=== PATIENT | female | born 1995 | race African-American/Black ===

== ENCOUNTER → 2016-12-30 | Outpatient (CLI) | payer MEDICAID ==
[2016-12-31 09:16] LABS: ABSOLUTE BASOPHILS # (AUTO) 0.1 10^3/uL (0.0-0.2); ABSOLUTE LYMPHOCYTES (AUTO) 1.9 10^3/uL (0.5-4.7); ABSOLUTE MONOCYTES (AUTO) 0.7 10^3/uL (0.1-1.4); ABSOLUTE NEUT (AUTO) 7.2 10^3/uL (1.7-8.2); BASOPHILS % (AUTO) 0.8 % (0-2); EOSINOPHILS % (AUTO) 0.1 % (0-6); HEMATOCRIT 27.3 % (36.0-47.0); HEMOGLOBIN 8.7 g/dL (12.0-15.5); HGB HCT DIFFERENCE -1.2; LYMPHOCYTES % (AUTO) 19.4 % (13-45); MEAN CORPUSCULAR HEMOGLOBIN 24.6 pg (27.0-33.4); MEAN CORPUSCULAR HGB CONC 31.7 g/dL (32.0-36.0); MEAN CORPUSCULAR VOLUME 78 fl (80-97); RED BLOOD COUNT 3.52 10^6/uL (3.72-5.28); RED CELL DISTRIBUTION WIDTH 15.3 % (11.5-14.0); SEGMENTED NEUTROPHILS % (AUTO) 72.7 % (42-78); WHITE BLOOD COUNT 9.9 10^3/uL (4.0-10.5)
[2016-12-31 13:40] LABS: APPEARANCE,URINE CLOUDY; BILIRUBIN,URINE NEGATIVE (NEGATIVE); GLUCOSE, URINE NEGATIVE (NEGATIVE); KETONES,URINE NEGATIVE (NEGATIVE); LEUKOCYTE ESTERASE,URINE SMALL (NEGATIVE); NITRITE,URINE NEGATIVE (NEGATIVE); PROTEIN,URINE NEGATIVE (NEGATIVE); URINE SPECIFIC GRAVITY 1.011; UROBILINOGEN,URINE NEGATIVE mg/dL (<2.0)
[2016-12-31 17:47] LABS: BLOOD UREA NITROGEN 8 mg/dL (7-20); CALCIUM 9.3 mg/dL (8.4-10.2); CREATININE RESULT 0.64 mg/dL (0.52-1.25); GLUCOSE 85 mg/dL (75-110)
[2016-12-31 17:48] LABS: ANION GAP 9 (5-19); CARBON DIOXIDE 22 mmol/L (22-30); CHLORIDE 108 mmol/L (98-107); SODIUM 139.1 mmol/L (137-145); URIC ACID 5.2 mg/dL (2.5-6.2)
[2016-12-31 17:49] LABS: LDH 533 U/L (313-618)
[2016-12-31 17:50] LABS: URINE PHENCYCLIDINE SCREEN NEGATIVE
[2016-12-31 17:51] LABS: URINE BARBITURATES SCREEN NEGATIVE; URINE METHADONE SCREEN NEGATIVE; URINE OPIATES LOW NEGATIVE
== END ==
LOC: LC 14:13
PROVIDERS: ATTEND Specialist
PROC: 4A1HXCZ Monitoring of Products of Conception, Cardiac Rate, External Approach (ICD-10-PCS; principal; 2016-12-30)
DX: O48.0 Post-term pregnancy (principal); Z3A.40 40 weeks gestation of pregnancy
CPT/HCPCS: 36415; 59025; 80048; 80307; 81001; 83615; 84550; 85025

== ENCOUNTER 2017-01-01 07:26 | Inpatient (IN) | payer MEDICAID ==
[2017-01-01] MEDS ORDERED: RINGERS SOLUTION,LACTATED 300 ML IV ONE (07:55)
[2017-01-01] MEDS ORDERED: MAGNESIUM SULFATE 100 ML IV ONE (08:01)
[2017-01-01] MEDS ORDERED: MAGNESIUM SULFATE 4 GM/100 ML RTUPB IV ONE (08:44)
[2017-01-01] MEDS: RINGERS SOLUTION,LACTATED 1,000 ML IV PRN (08:55)
[2017-01-01] MEDS: MAGNESIUM SULFATE 500 ML IV PRN (09:15)
[2017-01-01 09:18] LABS: ABSOLUTE LYMPHOCYTES (AUTO) 2.1 10^3/uL (0.5-4.7); ABSOLUTE MONOCYTES (AUTO) 0.6 10^3/uL (0.1-1.4); ABSOLUTE NEUT (AUTO) 5.4 10^3/uL (1.7-8.2); BASOPHILS % (AUTO) 0.5 % (0-2); EOSINOPHILS % (AUTO) 0.2 % (0-6); HEMATOCRIT 28.7 % (36.0-47.0); HEMOGLOBIN 9.1 g/dL (12.0-15.5); HGB HCT DIFFERENCE -1.4; LYMPHOCYTES % (AUTO) 25.4 % (13-45); MEAN CORPUSCULAR HEMOGLOBIN 24.6 pg (27.0-33.4); MEAN CORPUSCULAR HGB CONC 31.7 g/dL (32.0-36.0); MEAN CORPUSCULAR VOLUME 78 fl (80-97); MONOCYTES % (AUTO) 7.8 % (3-13); RED BLOOD COUNT 3.71 10^6/uL (3.72-5.28); RED CELL DISTRIBUTION WIDTH 15.5 % (11.5-14.0); SEGMENTED NEUTROPHILS % (AUTO) 66.1 % (42-78); WHITE BLOOD COUNT 8.1 10^3/uL (4.0-10.5)
[2017-01-01 09:31] LABS: ALANINE AMINOTRANSFERASE 20 U/L (9-52); ALBUMIN 3.5 g/dL (3.5-5.0); ALKALINE PHOSPHATASE 166 U/L (38-126); ANION GAP 13 (5-19); ASPARTATE AMINO TRANSFERASE 20 U/L (14-36); BILIRUBIN,DIRECT 0.2 mg/dL (0.0-0.4); BILIRUBIN,TOTAL 0.3 mg/dL (0.2-1.3); BLOOD UREA NITROGEN 5 mg/dL (7-20); CALCIUM 9.4 mg/dL (8.4-10.2); CARBON DIOXIDE 21 mmol/L (22-30); CHLORIDE 107 mmol/L (98-107); GLUCOSE 71 mg/dL (75-110); LDH 483 U/L (313-618); SODIUM 140.5 mmol/L (137-145); TOTAL PROTEIN 6.8 g/dL (6.3-8.2)
[2017-01-01] MEDS ORDERED: HYDRALAZINE HCL INJ/PF 20 MG/1 ML SDV IV ONE (09:40)
[2017-01-01] MEDS ORDERED: HYDRALAZINE HCL INJ/PF 20 MG/1 ML SDV ONE (09:40)
[2017-01-01 09:51] LABS: APPEARANCE,URINE SLIGHTLY-CLOUDY; BILIRUBIN,URINE NEGATIVE (NEGATIVE); GLUCOSE, URINE NEGATIVE (NEGATIVE); KETONES,URINE TRACE mg/dL (NEGATIVE); LEUKOCYTE ESTERASE,URINE NEGATIVE (NEGATIVE); NITRITE,URINE NEGATIVE (NEGATIVE); PROTEIN,URINE NEGATIVE (NEGATIVE); URINE SPECIFIC GRAVITY 1.012; UROBILINOGEN,URINE NEGATIVE mg/dL (<2.0)
[2017-01-01 10:19] LABS: URINE BARBITURATES SCREEN NEGATIVE; URINE METHADONE SCREEN NEGATIVE; URINE OPIATES LOW NEGATIVE; URINE PHENCYCLIDINE SCREEN NEGATIVE
[2017-01-01 11:03] LABS: AMNISURE (ROM) NEGATIVE (NEGATIVE)
[2017-01-01] MEDS ORDERED: OXYTOCIN/NORMAL SALINE 20 UNIT/1,000 ML RTUINJ ONE (11:27)
[2017-01-01] MEDS: OXYTOCIN/NORMAL SALINE 1,000 ML IV PRN ×2 (11:36→22:40)
[2017-01-01] MEDS ORDERED: PENICILLIN G-K 5 MILLION UNIT VIAL ONE ×3 (12:58→20:40)
[2017-01-01] MEDS ORDERED: ONDANSETRON HCL INJ/PF 4 MG/2 ML SDV ONE (13:13)
[2017-01-01] MEDS ORDERED: NALBUPHINE HCL INJ 10 MG/1 ML AMPULE ONE (14:37)
[2017-01-01] MEDS ORDERED: FENTANYL/BUPIVACAINE/NS/PF 200 MCG/100 ML RTUINJ EPI ONE (15:47)
[2017-01-01] MEDS ORDERED: EPHEDRINE SULFATE INJ 50 MG/1 ML AMPULE ONE (15:47)
[2017-01-01] MEDS ORDERED: LIDOCAINE 1% INJ-PF (10 MG/ML) 30 ML SDV ONE (15:47)
[2017-01-01] MEDS ORDERED: BUPIVACAINE HCL 0.25 % INJ/PF (2.5 MG/1 ML) 30 ML VIAL ONE (15:47)
[2017-01-01] MEDS ORDERED: MISOPROSTOL 0.2 MG TABLET ONE (15:47)
[2017-01-01] MEDS ORDERED: PSEUDOEPHEDRINE HCL 30 MG TABLET PO PRN (21:45)
[2017-01-01] MEDS ORDERED: MAGNESIUM HYDROXIDE SUSP 30 ML UDCUP PO PRN (21:45)
[2017-01-01] MEDS ORDERED: GLYCERIN/WITCH HAZEL LEAF 1 EACH MED..PAD TP PRN (21:45)
[2017-01-01] MEDS ORDERED: BENZOCAINE/MENTHOL AEROSOL SPRAY 56 ML TOP PRN (21:45)
[2017-01-01] MEDS ORDERED: DIBUCAINE 1% OINTMENT 28 GM TP PRN (21:45)
[2017-01-01] MEDS ORDERED: DIPH/PERTUSS(ACELL)/TETANUS VAC/PF 0.5 ML SYR (>=10YO) IM PRN (21:45)
[2017-01-01] MEDS ORDERED: MEASLES,MUMPS&RUBELLA VACC/PF 0.5 ML VIAL SUBCUT PRN (21:45)
[2017-01-01] MEDS ORDERED: PROMETHAZINE HCL INJ 25 MG/1 ML VIAL IV PRN (21:45)
[2017-01-01] MEDS ORDERED: DIPHENHYDRAMINE HCL 25 MG CAPSULE PO PRN (21:45)
[2017-01-01] MEDS ORDERED: NA PHOS,M-B/NA PHOS,DI-BA (ADULT) 133 ML ENEMA PR PRN (21:45)
[2017-01-01] MEDS ORDERED: ACETAMINOPHEN WITH CODEINE #3 TABLET PO PRN ×2 (21:45)
[2017-01-01] MEDS ORDERED: ACETAMINOPHEN 650 MG SUPP.RECT PR PRN (21:45)
[2017-01-01] MEDS ORDERED: ZOLPIDEM TARTRATE 5 MG TABLET PO PRN (21:45)
[2017-01-01] MEDS ORDERED: PROMETHAZINE HCL 25 MG SUPP.RECT PR PRN (21:45)
[2017-01-01] MEDS ORDERED: OXYTOCIN/NORMAL SALINE 1,000 ML IV PRN (21:45)
[2017-01-01] MEDS ORDERED: PROMETHAZINE HCL 25 MG TABLET PO PRN (21:45)
[2017-01-01] MEDS: PENICILLIN G-K 5 MILLION UNIT VIAL IV SCH ×2 (22:39→22:40)
[2017-01-01] MEDS: IBUPROFEN 800 MG TABLET PO SCH (22:47)
[2017-01-01] MEDS: FAMOTIDINE 20 MG TABLET PO SCH (22:48)
[2017-01-01] MEDS ORDERED: FAMOTIDINE 20 MG TABLET ONE (22:49)
[2017-01-01] MEDS ORDERED: IBUPROFEN 800 MG TABLET ONE (22:49)
--- NOTE | 2017-01-01 23:35 | Delivery Summary ---
Del Sum A-C Datetime Report Generated by CPN: 01/01/2017 23:35 DELIVERY PERSONNEL DELIVERY PERSONNEL: [phone] Delivery Doctor:: Delores Craig MD Labor and Delivery Nurse:: Gricelda Rosales RNexecutive wellness programs director Nurse:: Taina Dunn RN Nursery Nurse:: Kianna Mae RN Nursery Nurse:: Pattie Tucker RN Rn Dermatology/PATIENT PLACEMENT COORDINATOR: Keshav Ertel, PATIENT PLACEMENT COORDINATOR MATERNAL INFORMATION Delivery Anesthesia: Epidural Medications After Delivery: Pitocin Bolus-Please Comment Meds After Delivery Comment: Pitocin 20 unita/1000 ml NS Estimated Blood Loss (ml): 250 Maternal Complications: None LABOR SUMMARY EDC: 12/28/2016 00:00 No. Babies in Womb: 1 Attempted: No Labor Anesthesia: Epidural LABOR INFORMATION Reason for Induction: Pre-Eclampsia Onset of Labor: 01/01/2017 13:19 Complete Dilatation: 01/01/2017 20:16 Oxytocin: Induction Group B Beta Strep: positive Antibiotics # of Doses: 4 Antibiotics Time of Last Dose: 2042 Name of Antibiotic Given: PCN Steroids Given: None Reason Steroids Not Administered: Not Applicable MEMBRANES Membranes Rupture Method: Spontaneous Rupture of Membranes: 01/01/2017 15:09 Length of Rupture (hr): 6.18 Amniotic Fluid Color: Moderate Meconium Amniotic Fluid Amount: Large Amniotic Fluid Odor: Normal STAGES OF LABOR Stage 1 hr: 6 Stage 1 min: 57 Stage 2 hr: 1 Stage 2 min: 4 Stage 3 hr: 0 Stage 3 min: 5 Total Time in Labor hr: 8 Total Time in Labor min: 6 VAGINAL DELIVERY Episiotomy: None Laceration Extension: Second Degree Laceration Type: Perineal Laceration Repair: Yes Laceration Repair Note: repair of a very small 3-0 vicryl in usual fashion Sponge Count Correct: N/A Sharps Count Correct: N/A CSECTION DELIVERY Primary Indication: N/A Secondary Indication: N/A CSection Incidence: N/A Labor: N/A Elective: N/A CSection Incision: N/A BABY A INFORMATION Delivery Date/Time: 01/01/2017 21:20 Method of Delivery: Vaginal Born in Route : No : N/A Forceps: N/A Vacuum Extraction: N/A Shoulder Dystocia : No PRESENTATION/POSITION BABY A Presentation: Cephalic Cephalic Presentation: Vertex Vertex Position: Left Occipital Anterior Breech Presentation: N/A PLACENTA INFORMATION BABY A Placenta Delivery Time : 01/01/2017 21:25 Placenta Method of Delivery: Spontaneous Placenta Status: Delivered SCORES BABY A Heart Rate 1 min: >100 bpm Resp Effort 1 min: Good Cry Reflex Irritability 1 min: Cough or Sneeze or Pulls Away Muscle Tone 1 min: Some Flexion of Extremities Color 1 min: Blue/Pale Resuscitation Effort 1 min: Tactile Stimulation; Oxygen SCORE 1 MIN: 7 Heart Rate 5 min: >100 bpm Resp Effort 5 min: Good Cry Reflex Irritability 5 min: Cough or Sneeze or Pulls Away Muscle Tone 5 min: Active Motion Color 5 min: Blue/Pale Resuscitation Effort 5 min: Tactile Stimulation; Oxygen SCORE 5 MIN: 8 INFANT INFORMATION BABY A Gestational Age at Delivery: 40.4 Gestational Status: Full Term- 39- 40.6 Weeks Infant Outcome : Liveborn Condition : Stable Sex: Male IDENTIFICATION BABY A Infant Verification Date/Time: 01/01/2017 21:30 ID Band Number: [id number] Mother's Name Verified: Yes Infant RN Verifying Infant: K. Akshat, RN/B. Dunn, RN WEIGHT/LENGTH BABY A Infant Birthweight (gm): 2845 Weight (lb): 6 Weight (oz): 4 Infant Length (in): 18.75 Length (cm): 47.63 CORD INFORMATION BABY A No. Cord Vessels: 3 Nuchal Cord : N/A Cord Blood Taken: Yes-For Storage (Mom's Blood type +) Suction: Mouth; Nose ASSESSMENT BABY A Infant Complications: None Physical Findings at Delivery: Within Normal Limits Skin to Skin: Yes Skin to Skin Time (min): 1 Accounting Recruiter/ALS Called : No Infant Care By: Benny Mae RN/Audra Tucker RN Transferred To: [facility] SIGNATURES Signature: with User ID: [email or web address] : I personally evaluated and examined the patient in conjunction with the MLP and agree with the assessment, treatment plan and disposition.
[2017-01-02] MEDS ORDERED: PENICILLIN G POTASSIUM 2,500,000 UNIT in DEXTROSE 5%-WATER 50 ML IV SCH (00:38)
[2017-01-02] MEDS: RINGERS SOLUTION,LACTATED 1,000 ML IV PRN (02:13)
[2017-01-02] MEDS: MAGNESIUM SULFATE 500 ML IV PRN (05:02)
[2017-01-02 07:57] LABS: HEMATOCRIT 27.2 % (36.0-47.0); HEMOGLOBIN 8.7 g/dL (12.0-15.5); HGB HCT DIFFERENCE -1.1; MEAN CORPUSCULAR HEMOGLOBIN 24.7 pg (27.0-33.4); MEAN CORPUSCULAR HGB CONC 32.2 g/dL (32.0-36.0); MEAN CORPUSCULAR VOLUME 77 fl (80-97); RED BLOOD COUNT 3.54 10^6/uL (3.72-5.28); RED CELL DISTRIBUTION WIDTH 15.6 % (11.5-14.0)
[2017-01-02 08:10] LABS: WHITE BLOOD COUNT 18.9 10^3/uL (4.0-10.5)
[2017-01-02] MEDS: IBUPROFEN 800 MG TABLET PO SCH ×3 (08:39→22:40)
[2017-01-02] MEDS ORDERED: ACETAMINOPHEN WITH CODEINE #3 TABLET ONE (08:55)
[2017-01-02] MEDS ORDERED: PRAMOXINE HCL/MINERAL OIL/ZNOX OINT 28.3 GM PR PRN (09:04)
[2017-01-02] MEDS ORDERED: BENZOCAINE/MENTHOL AEROSOL SPRAY 56 ML ONE (09:04)
--- NOTE | 2017-01-02 09:58 | Admission Physical ---
Datetime Report Generated by CPN: 01/02/2017 09:58 CURRENT ADMISSION Chief Complaint: Uterine Contractions Admit Impression- Other: Elevated b/p Admit Plan: Admit to Unit; Initiate Labor Protocol ALLERGIES Medication Allergies: No Medication Allergies: No Known Allergies (07/31/2016) Latex: No Latex Allergies Food Allergies: none Environmental Allergies: none OBSTETRICAL HISTORY EDC: 12/28/2016 00:00 : 1 Para: 0 Gestational Diabetes: No Rh Sensitization: No Incompetent Cervix: No VICTOR M: No Infertility: No ART Treatment: No Uterine Anomaly: No IUGR: No Hx Previous C/S: No Macrosomia: No Hx Loss/Stillborn: No PIH: Yes Hx : No Placenta Previa/Abruption: No Depression/PP Depression: No PTL/PROM: No Post Hemorrhage: No Current Procedures: Ultrasound; NST Obstetrical History Comments: G1: current SEE RECORDS Alcohol: No Marijuana : No Cocaine: No Other Illicit Drugs: No Cigarettes: Never Smoker. 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 Surgery: No Heart Disease: No Hosp/Surgery: No Autoimmune Disorder: No Anesthetic Complications: No Kidney Disease: No Abnormal Pap Smear: No Neuro/Epilepsy: No Psychiatric Disorders: No Other Medical Diseases: No Hepatitis/Liver Disease: No Significant Family History: No Varicosities/Phlebitis: No Trauma/Violence : No Thyroid Dysfunction: No INFECTIOUS HISTORY Gonorrhea: No Genital Herpes: No Chlamydia: No Tuberculosis: No Syphilis: No Hepatitis: No HIV/AIDS Exposure: No Rash or Viral Illness: No HPV: No PHYSICAL EXAM General: Normal HEENT: Normal Neurologic: Normal Thyroid: Deferred Heart: Normal Lungs: Normal Breast: Deferred Back: Normal Abdomen: Normal Genitourinary Exam: Deferred Extremities: Normal DTRs: Normal Pelvic Type: Not Done Physical Exam Comments: Gravid uterus Vital Signs: Reviewed Details Vital Signs: Elevated b/p VAGINAL EXAM Dilatation: 3 Effacement: 90 Station: -1 FETUS A EGA: 40.4 Monitoring: External US FHR- Baseline: 120 Variability: Moderate 6-25bpm Accelerations: 15X15 Decelerations: None Admit Comment: G1 Admitted for elevated b/p PIH in normal range records available from [facility] Dept Admitted and receiving Magnesium Sulfate Pitocin infusing for IOL PLANS FOR LABOR AND DELIVERY Labor and Delivery: None Pain Management: Epidural Feeding Preference: Breast Benefit of Breast Feed Discussed: Yes Circumcision: Yes INFORMED CONSENT Assignment: Delores Craig MD Signature: with User ID: José Miguel : with User ID: José Miguel : I personally evaluated and examined the patient in conjunction with the MLP and agree with the assessment, treatment plan and disposition.
[2017-01-02] MEDS ORDERED: ONDANSETRON HCL INJ/PF 4 MG/2 ML SDV ONE (10:00)
[2017-01-02] MEDS: SENNOSIDES/DOCUSATE 8.6-50 MG 1 EACH TABLET PO SCH (10:43)
[2017-01-02] MEDS: PRENATAL VITAMIN W-O CA NO5/FE FUMARATE/FA CAPSULE PO SCH (10:43)
[2017-01-02] MEDS: FAMOTIDINE 20 MG TABLET PO SCH ×2 (10:43→22:40)
[2017-01-02] MEDS: DOCUSATE SODIUM 100 MG CAPSULE PO SCH ×2 (10:43→17:50)
[2017-01-02] MEDS: FERROUS SULFATE 325 MG TABLET PO SCH ×2 (10:43→17:50)
[2017-01-02] MEDS ORDERED: ONDANSETRON HCL INJ/PF 4 MG/2 ML SDV IV ONE (10:45)
[2017-01-03] MEDS: IBUPROFEN 800 MG TABLET PO SCH (06:23)
[2017-01-03 09:15] VITALS: BP 126/66
[2017-01-03] MEDS: FERROUS SULFATE 325 MG TABLET PO SCH (09:19)
[2017-01-03] MEDS: FAMOTIDINE 20 MG TABLET PO SCH (09:19)
[2017-01-03] MEDS: DOCUSATE SODIUM 100 MG CAPSULE PO SCH (09:19)
[2017-01-03] MEDS: SENNOSIDES/DOCUSATE 8.6-50 MG 1 EACH TABLET PO SCH (09:20)
[2017-01-03] MEDS: PRENATAL VITAMIN W-O CA NO5/FE FUMARATE/FA CAPSULE PO SCH (09:47)
--- NOTE | 2017-01-03 10:52 | PDOC PROGRESS REPORT ---
Subjective-OB Subjective: Post Delivery Day: 21 year old. Denies any needs at this time. Ready to go home. Denies any KESSLER or visual changes. Physical Exam (OB) Vital Signs: Temp Pulse Resp BP Pulse Ox 98.3 F 62 17 125/78 100 01/03/17 08:58 01/03/17 08:58 01/03/17 08:58 01/03/17 08:58 01/03/17 08:58 Intake & Output 01/02/17 01/03/17 01/04/17 06:59 06:59 06:59 Weight 74.95 kg - PIH/Pre-Eclampsia DTR's: 2 + Clonus: Negative Headache: Absent Epigastric Pain: No Visual Changes: No - Lochia Lochia Amount: Scant < 10 ml Lochia Color: Rubra/Red - Abdomen Description: Tender, Soft Hernia Present: No Bowel Sounds: Normoactive Flatus Presence: Present Stool: No Fundal Description: Firm, Midline Fundal Height: u/u - u/2 Objective-Diagnostic Laboratory: 01/02/17 07:25 01/01/17 08:31
--- NOTE | 2017-01-03 11:00 | PDOC DISCHARGE SUMMARY ---
Final Diagnosis Discharge Date: 01/03/17 - Final Diagnosis (1) Anemia affecting Is this a current diagnosis for this admission?: Yes (2) Delivery normal Is this a current diagnosis for this admission?: Yes (3) Pre-eclampsia affecting childbirth Is this a current diagnosis for this admission?: Yes (4) Is this a current diagnosis for this admission?: Yes Discharge Data - Discharge Medication Home Medications: Vit/Iron Fumarate/FA [ Tablet] 1 each PO DAILY 06/15/16 Docusate Sodium [Colace 100 mg Capsule] 100 mg PO BID #30 capsule 01/03/17 Ferrous Sulfate [Feosol 325 mg Tablet] 325 mg PO BID #60 tablet 01/03/17 Gestational Age: 40.4 wks Reason(s) for Admission: Induction of Labor Procedures: Ultrasound Intrapartum Procedure(s): Spontaneous Vaginal Delivery Complication(s): Laceration-Perineal Laceration-Degree: 2nd - Data Baby 1 Male at 1 minute: 7 at 5 minutes: 8 Weight: 2.835 kg Home with Mother: Yes Complications: No - Diagnosis Test Laboratory: Temp Pulse Resp BP Pulse Ox 98.3 F 62 17 125/78 100 01/03/17 08:58 01/03/17 08:58 01/03/17 08:58 01/03/17 08:58 01/03/17 08:58 01/01/17 01/01/17 01/02/17 08:31 09:12 07:25 RBC 3.71 L 3.54 L Hgb 9.1 L 8.7 L Hct 28.7 L 27.2 L Urine Opiates Screen NEGATIVE - Discharge information/Instructions Discharge Activity: Activity As Tolerated, Balance Activity w/Rest, Pelvic Rest , Slowly Increase Activity, No tub bath Discharge Diet: Regular Disposition: HOME, SELF-CARE Follow up with: [facility] in: 1, Weeks
[2017-01-03 11:19] LABS: HEMATOCRIT 26.6 % (36.0-47.0); HEMOGLOBIN 8.5 g/dL (12.0-15.5); HGB HCT DIFFERENCE -1.1; MEAN CORPUSCULAR HEMOGLOBIN 24.6 pg (27.0-33.4); MEAN CORPUSCULAR HGB CONC 31.8 g/dL (32.0-36.0); MEAN CORPUSCULAR VOLUME 77 fl (80-97); RED BLOOD COUNT 3.44 10^6/uL (3.72-5.28); RED CELL DISTRIBUTION WIDTH 15.5 % (11.5-14.0); WHITE BLOOD COUNT 11.4 10^3/uL (4.0-10.5)
== END 2017-01-03 13:45 | disposition home or self-care (01) | DRG 775 ==
LOC: LC 07:26 → LR 07:53 → 2S 01-02 09:57
PROVIDERS: ADMIT Obstetrics & Gynecology; ATTEND Obstetrics & Gynecology
PROC: 10E0XZZ Delivery of Products of Conception, External Approach (ICD-10-PCS; principal; 2017-01-01)
PROC: 0KQM0ZZ Repair Perineum Muscle, Open Approach (ICD-10-PCS; 2017-01-01)
DX: O14.94 Unspecified pre-eclampsia, complicating childbirth (principal); O99.824 Streptococcus B carrier state complicating childbirth; O99.013 Anemia complicating pregnancy, third trimester; O77.0 Labor and delivery complicated by meconium in amniotic fluid; O70.1 Second degree perineal laceration during delivery; Z3A.40 40 weeks gestation of pregnancy; Z37.0 Single live birth
CPT/HCPCS: 36415; 80053; 80307; 81005; 83615; 84112; 84550; 85025; 85027; 86592; 86850; 86900; 86901; J0360; J2300; J2405; J2540; J2590; J3475; J3490

== ENCOUNTER 2017-04-04 19:38 | Emergency (ER) | payer MEDICAID ==
[2017-04-04 20:08] VITALS: BP 135/78
[2017-04-04] MEDS ORDERED: IBUPROFEN 800 MG TABLET PO ONE (21:02)
--- NOTE | 2017-04-04 21:02 | ER Document Report ---
ED GI/ - General Chief Complaint: Swollen tonsils, Vaginal discharge Stated Complaint: SWOLLEN TONSILS Time Seen by Provider: 04/04/17 20:31 Mode of Arrival: Ambulatory Information source: Patient Notes: 21-year-old female presents to ED for complaint of swollen tonsils body aches chills vaginal discharge and swelling to the labia. Patient states that this throat body aches started yesterday the vaginal discharge and swelling to the labia started today. She states she has been with a new partner recently. TRAVEL OUTSIDE OF THE [place] IN LAST 30 DAYS: No - HPI Patient complains to provider of: Vaginal discharge, Vaginal pain, Other - Sore throat Onset: Yesterday Timing/Duration: Gradual Quality of pain: Achy - Body aches, Burning - Vagina, Sharp - Vagina Severity at maximum: Moderate Severity in ED: Moderate Pain Level: 3 Location: Pelvis, Vaginal Vaginal bleeding (Compared to normal period): None Sexual history: New partner, Unprotected intercourse Associated symptoms: Fever, Vaginal discharge, Other - sore throat body aches Exacerbated by: Movement, Walking Relieved by: Denies Similar symptoms previously: No Recently seen / treated by doctor: No Past Medical History - General Information source: Patient - Social History Smoking Status: Never Smoker Cigarette use (# per day): No Chew tobacco use (# tins/day): No Smoking Education Provided: No Frequency of alcohol use: Occasional Drug Abuse: None Occupation: none Lives with: Parents Family History: Arthritis, CAD, CVA, DM, Hyperlipidemia, Hypertension, Malignancy, Thyroid Disfunction Patient has suicidal ideation: No Patient has homicidal ideation: No - Past Medical History Cardiac Medical History: Reports: Hx Hypertension Pulmonary Medical History: Reports: None EENT Medical History: Reports: None Neurological Medical History: Reports: None Endocrine Medical History: Reports: None Renal/ Medical History: Reports: None Malignancy Medical History: Reports: None GI Medical History: Reports: None Musculoskeltal Medical History: Reports None Skin Medical History: Reports None Psychiatric Medical History: Reports: None Traumatic Medical History: Reports: None Infectious Medical History: Reports: None Surgical Hx: Negative Past Surgical History: Reports: None - Immunizations Immunizations up to date: Yes Hx Diphtheria, Pertussis, Tetanus Vaccination: Yes Review of Systems - Review of Systems Constitutional: No symptoms reported EENT: No symptoms reported Cardiovascular: No symptoms reported Respiratory: No symptoms reported Gastrointestinal: No symptoms reported Genitourinary: No symptoms reported Female Genitourinary: No symptoms reported Musculoskeletal: No symptoms reported Skin: No symptoms reported Hematologic/Lymphatic: No symptoms reported Neurological/Psychological: No symptoms reported -: Yes All other systems reviewed and negative Physical Exam - Vital signs Vitals: Temp Pulse Resp BP Pulse Ox 100.4 F 84 18 135/78 H 100 04/04/17 20:06 04/04/17 20:06 04/04/17 20:06 04/04/17 20:06 04/04/17 20:06 Interpretation: Normal - General General appearance: Appears well, Alert - HEENT Head: Normocephalic, Atraumatic Eyes: Normal Pupils: PERRL Ears: Normal External canal: Normal Tympanic membrane: Normal Sinus: Normal Nasal: Purulent discharge, Swelling Mouth/Lips: Normal Mucous membranes: Normal Pharynx: Erythema, Tonsillar hypertrophy Neck: Anterior cervical chain - Respiratory Respiratory status: No respiratory distress Chest status: Nontender Breath sounds: Normal Chest palpation: Normal - Cardiovascular Rhythm: Regular Heart sounds: Normal auscultation Murmur: No - Abdominal Inspection: Normal Distension: No distension Bowel sounds: Normal Tenderness: Nontender Organomegaly: No organomegaly - Back Back: Normal, Nontender - Extremities General upper extremity: Normal inspection, Nontender, Normal color, Normal ROM , Normal temperature General lower extremity: Normal inspection, Nontender, Normal color, Normal ROM , Normal temperature, Normal weight bearing. No: Myla's sign - Neurological Neuro grossly intact: Yes Cognition: Normal Orientation: AAOx4 Fabricio Coma Scale Eye Opening: Spontaneous Fabricio Coma Scale Verbal: Oriented Fabricio Coma Scale Motor: Obeys Commands Fabricio Coma Scale Total: 15 Speech: Normal Motor strength normal: LUE, RUE, LLE, RLE Sensory: Normal - Psychological Associated symptoms: Normal affect, Normal mood - Skin Skin Temperature: Warm Skin Moisture: Dry Skin Color: Normal Course - Re-evaluation Re-evalutation: 04/04/17 21:33 Patient is positive for strep and she had a green vaginal drainage with swelling to the vaginal area no swelling to the labia no signs of a Bartholin's cyst or Bartholin abscess. Very tender to the vaginal area. She states she has had penicillin many times and she has never had an allergic reaction to it she states that her mom told her she was allergic to amoxicillin but she knows she is not allergic to penicillin. She states she has had Rocephin and penicillin in the past. Will treat with penicillin G 1.2 million units IM, Rocephin 250 mg IM, and azithromycin 1 g p.o.. Discharge patient to follow-up with [facility] within the next 3-5 days to ensure that it her symptoms have cleared. - Vital Signs Vital signs: Temp Pulse Resp BP Pulse Ox 100.4 F 84 18 135/78 H 100 04/04/17 20:06 04/04/17 20:06 04/04/17 20:06 04/04/17 20:06 04/04/17 20:06 - Laboratory Laboratory results interpreted by me: 04/04/17 21:00 Urine Glucose (UA) 50 H Urine Blood MODERATE H Ur Leukocyte Esterase LARGE H Discharge - Discharge Clinical Impression: Strep pharyngitis, PID (acute pelvic inflammatory disease) Condition: Stable Disposition: HOME, SELF-CARE Additional Instructions: STREP THROAT: Your sore throat is due to the streptococcus germ (strep throat). Strep throat usually makes you feel quite ill with fever and aches, headache, swollen sore throat, and tender bumps under the angles of the jaw. Strep throat requires antibiotic treatment. Although the sore throat may go away by itself, complications such as rheumatic fever, kidney disease, or throat abscess can occur. We usually prescribe antibiotics by mouth. Be sure to take the medicine until it's gone. If you stop early, the strep may come back. If you are vomiting, are severely ill, or can't remember to take pills, we can give you an antibiotic shot. Take acetaminophen or ibuprofen for pain and fever. Sip frequent clear liquids, or use popsicles or ice chips. Anesthetic sprays or lozenges may help. Make sure the air in the room is not too dry. Avoid using decongestants or antihistamines. Call the doctor if there is no improvement in three days, or if you have difficulty breathing, increasing throat pain, high fever, rash, or frequent vomiting. PELVIC PAIN: There are many causes of pain in the pelvic area. The cause could be the tubes, ovaries, uterus, intestines, appendix, pelvic muscles and connective tissue, or the urinary tract. The cause of your pelvic pain is not clear. However, it seems safe to treat you outside the hospital. If the pain sounds like a temporary problem, we sometimes wait to see if it goes away. Other patients may need additional tests, such as pelvic ultrasound or cultures. Conditions may change. Call us or come back for reexamination if any problems occur, such as: (1) Pain that becomes more severe, steady, or becomes concentrated in one specific area. Also, pain that is more severe with movement or coughing. (2) Vomiting that persists or becomes more frequent. (3) Blood in the vomitus, urine, or bowel movements. Blood in the stool may have a tarry or black appearance. (4) Shaking chills or fever greater than 100 degrees. (5) The abdomen becomes more distended or swollen. (6) Bowel movements cease. (7) Heavy vaginal bleeding. PELVIC INFLAMMATORY DISEASE: You have been diagnosed as having pelvic inflammatory disease (PID). This is an infection of the fallopian tubes and surrounding areas of the pelvis. Symptoms are usually pelvic pain and discharge. The infection can do permanent damage to the tubes and ovaries. It should be taken very seriously. Treatment is antibiotics, which may be given by vein or by injection if the infection seems serious. It's important that you receive all recommended medication. Condoms help prevent spread of this infection to others. Because this infection is spread sexually, it's important that your sexual partner be checked before resuming sexual relations. If a culture shows gonorrhea or chlamydia organisms, the law requires that this be reported to the health department. Call the doctor or return at once if you develop increasing fever, rash, severe pelvic pain, vaginal bleeding (other than your period), or problems with your bladder or bowels. Penicillins The antibiotic you have received is a member of the penicillin family. This is a very useful class of antibiotics. The particular type of antibiotic chosen for you was determined by the nature of your problem. Penicillins are absorbed best when taken on an empty stomach, and should be taken either a half hour before or two hours after a meal. Some newer medicines of the penicillin class are better taken with food -- if this is the case, the pharmacist will label the medicine to alert you. Penicillins usually have no side effects. However, allergy to penicillins is common. If you have had an allergic reaction to any drug of the penicillin family, you should never take any other penicillin. Notify your doctor at once if you develop hives, itching, swelling, faintness, or shortness of breath. Less serious side effects can include nausea or diarrhea. Rocephin You have been given an injection of an antibiotic called Rocephin ( ceftriaxone). Sometimes the injection must be combined with antibiotic pills. For some infections, such as an uncomplicated ear infection, Rocephin provides all the antibiotic that's needed. The antibiotic will be in your body for about two days. For serious infections, we usually repeat doses of Rocephin daily. Side effects are very unusual following a shot. Women may develop vaginal yeast infections, and babies can get yeast (thrush) in the mouth following the use of antibiotics. Contact your physician if you have symptoms with this medication. Allergy to this antibiotic can result in hives, wheezing, faintness, or itching. If symptoms of allergy occur, call the doctor at once. AZITHROMYCIN: Azithromycin (Zithromax) is a broad spectrum antibiotic in the same class as erythromycin. It can treat a variety of bacterial infections, but is most frequently used for respiratory infections. Azithromycin is extremely long-lasting. It accumulates in body tissues and continues to kill bacteria for many days. In order to improve absorption, Azithromycin should be taken at least one hour before or two hours after a meal. It does not have the same strong tendency to upset the stomach as erythromycin and is usually very well tolerated. Patients who have had a rash or other true allergic reactions to erythromycin should not take this medication. Call if you develop gastrointestinal distress, severe diarrhea, rash, hives, itching, or shortness of breath. Ibuprofen Ibuprofen is an excellent, safe drug for pain control. In addition, it has potent antiinflammatory effects which are beneficial, especially in the treatment of injuries, arthritis, or tendonitis. It's best to take ibuprofen with food. Persons with ulcer disease or allergy to aspirin should notify their physician of this before taking ibuprofen. Take the medication exactly as prescribed. Don't take additional doses unless instructed to do so by your doctor. If you develop wheezing, shortness of breath, hives, faintness, stomach pain, vomiting, or dark black stools, return for re-evaluation at once. FOLLOW-UP CARE: If you have been referred to a physician for follow-up care, call the physician s office for an appointment as you were instructed or within the next two days. If you experience worsening or a significant change in your symptoms, notify the physician immediately or return to the Emergency Department at any time for re-evaluation. Prescriptions: Ibuprofen 600 mg PO Q6HP PRN #20 tablet PRN Reason: Fluconazole [Diflucan] 150 mg PO ONCE PRN #1 tablet PRN Reason: Forms: Elevated Blood Pressure Referrals: PRADEEP ORR MD [Primary Care Provider] - Follow up as needed
[2017-04-04 21:20] LABS: APPEARANCE,URINE SLIGHTLY-CLOUDY; BILIRUBIN,URINE NEGATIVE (NEGATIVE); GLUCOSE, URINE 50 mg/dL (NEGATIVE); KETONES,URINE NEGATIVE (NEGATIVE); LEUKOCYTE ESTERASE,URINE LARGE (NEGATIVE); NITRITE,URINE NEGATIVE (NEGATIVE); PROTEIN,URINE NEGATIVE (NEGATIVE); URINE SPECIFIC GRAVITY 1.012; UROBILINOGEN,URINE NEGATIVE mg/dL (<2.0)
[2017-04-04] MEDS ORDERED: LIDOCAINE 1% INJ-PF (10 MG/ML) 30 ML SDV INJ ONE (21:30)
[2017-04-04] MEDS ORDERED: AZITHROMYCIN 250 MG TABLET PO ONE (21:30)
[2017-04-04] MEDS ORDERED: PENICILLIN G BENZATHINE 1.2 MILLION UNIT/2 ML DISP.SYRIN IM ONE (21:30)
[2017-04-04] MEDS ORDERED: CEFTRIAXONE INJ 250 MG VIAL IM ONE (21:30)
[2017-04-04 22:31] LABS: CHLAM PCR NOT DETECTED (NOT DETECT)
== END 2017-04-04 22:50 | disposition home or self-care (01) ==
LOC: ER 19:38
DX: J02.0 Streptococcal pharyngitis (principal); N73.9 Female pelvic inflammatory disease, unspecified; R10.2 Pelvic and perineal pain; R50.9 Fever, unspecified; I10 Essential (primary) hypertension; J34.89 Other specified disorders of nose and nasal sinuses
CPT/HCPCS: 99283; 96372; 87210; 87880; 81025; 81001; 87491; 87591; Q0144; J3490; J0561; J0696

== ENCOUNTER 2017-11-29 20:05 | Emergency (ER) | payer MEDICAID ==
[2017-11-29] MEDS ORDERED: DICYCLOMINE HCL INJ 20 MG/2 ML AMPULE IM ONE (22:43)
[2017-11-29 23:19] LABS: ABSOLUTE EOSINOPHILS # (AUTO) 0.1 10^3/uL (0.0-0.6); ABSOLUTE LYMPHOCYTES (AUTO) 2.5 10^3/uL (0.5-4.7); ABSOLUTE MONOCYTES (AUTO) 0.6 10^3/uL (0.1-1.4); ABSOLUTE NEUT (AUTO) 3.4 10^3/uL (1.7-8.2); BASOPHILS % (AUTO) 0.7 % (0-2); EOSINOPHILS % (AUTO) 1.2 % (0-6); HEMATOCRIT 37.3 % (36.0-47.0); LYMPHOCYTES % (AUTO) 37.9 % (13-45); MEAN CORPUSCULAR HGB CONC 32.2 g/dL (32.0-36.0); MEAN CORPUSCULAR VOLUME 78 fl (80-97); MONOCYTES % (AUTO) 9.4 % (3-13); RED CELL DISTRIBUTION WIDTH 16.6 % (11.5-14.0); SEGMENTED NEUTROPHILS % (AUTO) 50.8 % (42-78); TOTAL CELLS COUNTED % (AUTO) 100 %; WHITE BLOOD COUNT 6.7 10^3/uL (4.0-10.5)
[2017-11-29 23:31] LABS: ALANINE AMINOTRANSFERASE 23 U/L (9-52); ALBUMIN 5.1 g/dL (3.5-5.0); ALKALINE PHOSPHATASE 66 U/L (38-126); ANION GAP 14 (5-19); ASPARTATE AMINO TRANSFERASE 27 U/L (14-36); BILIRUBIN,DIRECT 0.2 mg/dL (0.0-0.4); BILIRUBIN,TOTAL 0.4 mg/dL (0.2-1.3); BLOOD UREA NITROGEN 7 mg/dL (7-20); CALCIUM 10.3 mg/dL (8.4-10.2); CARBON DIOXIDE 21 mmol/L (22-30); CHLORIDE 106 mmol/L (98-107); GLUCOSE 84 mg/dL (75-110); POTASSIUM 4.2 mmol/L (3.6-5.0); SODIUM 141.4 mmol/L (137-145); TOTAL PROTEIN 8.5 g/dL (6.3-8.2)
--- NOTE | 2017-11-29 23:35 | ER Document Report ---
ED General - General Chief Complaint: Abdominal Cramping Stated Complaint: DIARRHEA Time Seen by Provider: 11/29/17 22:39 Notes: Patient is 22-year-old female presents with complaint of diarrhea. Some nausea but no vomiting. Some intermittent mild crampy abdominal pain. Stools were watery. No blood in the stool. No fevers. No recent sick contacts. She denies eating anything that seemed abnormal to her or undercooked. No exotic pets at home. She has dogs and they are up-to-date on shots and treatment. No recent antibiotic use. No recent travel outside the country. No abnormal vaginal discharge or bleeding. No dysuria. TRAVEL OUTSIDE OF THE [place] IN LAST 30 DAYS: No - Related Data Allergies/Adverse Reactions: amoxicillin Allergy (Verified 11/29/17 23:28) Past Medical History - Social History Smoking Status: Never Smoker Frequency of alcohol use: None Drug Abuse: None Family History: Arthritis, CAD, CVA, DM, Hyperlipidemia, Hypertension, Malignancy, Thyroid Disfunction Patient has suicidal ideation: No Patient has homicidal ideation: No - Past Medical History Cardiac Medical History: Reports: Hx Hypertension Renal/ Medical History: Denies: Hx Peritoneal Dialysis - Immunizations Immunizations up to date: Yes Hx Diphtheria, Pertussis, Tetanus Vaccination: Yes Review of Systems - Review of Systems Notes: My Normal Review Basic REVIEW OF SYSTEMS: CONSTITUTIONAL : Denies fever, chills, or sweats. Denies recent illness. RESPIRATORY: Denies cough, cold, or chest congestion. Denies shortness of breath, difficulty breathing, or wheezing. GASTROINTESTINAL: Intermittent crampy abdominal pain with diarrhea. GENITOURINARY: Denies difficulty urinating, painful urination, burning, frequency, or blood in urine. MUSCULOSKELETAL: Denies neck or back pain or joint pain or swelling. SKIN: Denies rash or skin lesions. NEUROLOGICAL: Denies altered mental status or loss of consciousness. Denies headache. Denies weakness or paralysis or loss of use of either side. Denies problems with gait or speech. Denies sensory or motor loss. ALL OTHER SYSTEMS REVIEWED AND NEGATIVE. Physical Exam - Vital signs Vitals: Temp Pulse Resp BP Pulse Ox 97.9 F 69 18 126/85 H 100 11/29/17 20:35 11/29/17 20:35 11/29/17 20:35 11/29/17 20:35 11/29/17 20:35 - Notes Notes: General Appearance: Well nourished, alert, cooperative, no acute distress, no obvious discomfort. Well-appearing. Vitals: reviewed, See vital signs table. Head: no swelling or tenderness to the head Eyes: PERRL, EOMI, Conjuctiva clear Mouth: No decreasd moisture Lungs: No wheezing, No rales, No rhonci, No accessory muscle use, good air exchange bilaterally. Heart: Normal rate, Regular rythm, No murmur, no rub Abdomen: Normal BS, soft, No rigidity, No reproducible abdominal tenderness to palpation, No guarding, no rebound, no abdominal masses, no organomegaly Extremities: strength 5/5 in all extremities, good pulses in all extremities, no swelling or tenderness in the extremities, no edema. Skin: warm, dry, appropriate color, no rash Neuro: speech clear, oriented x 3, normal affect, responds appropriately to questions. Course - Re-evaluation Re-evalutation: 11/30/17 04:03 Patient looks well. She is not dehydrated or sick appearing. Her laboratory evaluation is unremarkable. She has no leukocytosis and no fever and no current risk factors for bacterial diarrhea illness. Will place her on Bentyl to help with bowel cramps. I informed her that she still having diarrhea after 2 days and she should return to ER for reevaluation. I encouraged her to come to the ER immediately if she has fevers, vomiting, bloody stools, mucousy stools , or she feels that she is worsening. Patient agrees with plan will be discharged home. Dictation of this chart was performed using voice recognition software; therefore, there may be some unintended grammatical errors. - Vital Signs Vital signs: Temp Pulse Resp BP Pulse Ox 98.4 F 66 16 114/72 99 11/30/17 00:36 11/30/17 00:36 11/30/17 00:36 11/30/17 00:36 11/30/17 00:36 - Laboratory Result Diagrams: 11/29/17 22:54 11/29/17 22:54 Laboratory results interpreted by me: 11/29/17 11/29/17 22:54 22:54 MCV 78 L MCH 25.0 L RDW 16.6 H Carbon Dioxide 21 L Calcium 10.3 H Total Protein 8.5 H Albumin 5.1 H Discharge - Discharge Clinical Impression: Abdominal pain Qualifiers: Abdominal location: generalized Qualified Code(s): R10.84 - Generalized abdominal pain Diarrhea Qualifiers: Diarrhea type: unspecified type Qualified Code(s): R19.7 - Diarrhea, unspecified Condition: Good Disposition: HOME, SELF-CARE Additional Instructions: Please return to the ER immediately if you develop fevers, vomiting, bloody stools, mucousy stools, or if you feel unwell. Please follow up closely with your doctor for close reevlauation. Prescriptions: Dicyclomine HCl [Bentyl 10 mg Capsule] 1 cap PO TID PRN #15 cap PRN Reason: Abdominal Cramping Referrals: PRADEEP ORR MD [Primary Care Provider] - 12/01/17
[2017-11-29 23:36] LABS: PLATELET COUNT 279 10^3/uL (150-450)
[2017-11-30 00:45] VITALS: BP 114/72
== END 2017-11-30 00:40 | disposition home or self-care (01) ==
LOC: ER 20:05
DX: R10.84 Generalized abdominal pain (principal); R19.7 Diarrhea, unspecified; R11.0 Nausea; Z88.0 Allergy status to penicillin; I10 Essential (primary) hypertension
CPT/HCPCS: 99284; 96372; 36415; 83735; 84703; 85025; 80053; J0500

== ENCOUNTER 2017-12-22 16:13 | Emergency (ER) | payer SELFPAY ==
--- NOTE | 2017-12-22 16:32 | ER Document Report ---
ED Medical Screen (RME) - General Chief Complaint: Vaginal Discharge Stated Complaint: VAGINAL DISCOMFORT,DISCHARGE Time Seen by Provider: 12/22/17 16:31 TRAVEL OUTSIDE OF THE [place] IN LAST 30 DAYS: No - HPI Patient complains to provider of: Vaginal discomfort vaginal discharge - Related Data Allergies/Adverse Reactions: amoxicillin Allergy (Verified 12/22/17 16:26) Past Medical History - Social History Chew tobacco use (# tins/day): No Frequency of alcohol use: None Drug Abuse: None - Past Medical History Cardiac Medical History: Reports: Hx Hypertension Renal/ Medical History: Denies: Hx Peritoneal Dialysis - Immunizations Immunizations up to date: Yes Hx Diphtheria, Pertussis, Tetanus Vaccination: Yes Review of Systems - Review of Systems Genitourinary: Discharge Physical Exam - General General appearance: Appears well In distress: None Doctor's Discharge - Discharge Referrals: KOLBY HENNESSY MD [Primary Care Provider] - Follow up as needed
--- NOTE | 2017-12-22 17:23 | ER Document Report ---
ED GI/ - General Chief Complaint: Vaginal Discharge Stated Complaint: VAGINAL DISCOMFORT,DISCHARGE Time Seen by Provider: 12/22/17 16:31 Mode of Arrival: Ambulatory Information source: Patient Notes: Patient presents complaining of lower pelvic cramping with vaginal discharge for the past week. Patient states she used Monistat about 2 weeks ago but her symptoms only worsened since then. Patient denies any fever or urinary symptoms. TRAVEL OUTSIDE OF THE [place] IN LAST 30 DAYS: No - HPI Patient complains to provider of: Pelvic pain, Vaginal discharge. No: Vomiting Onset: Last week Timing/Duration: Persistent Quality of pain: Cramping Pain Level: 3 Location: Pelvis Associated symptoms: Vaginal discharge. denies: Nausea, Urinary hesitancy, Urinary frequency, Urinary retention, Urinary urgency Exacerbated by: Denies Relieved by: Denies Similar symptoms previously: No Recently seen / treated by doctor: No - Related Data Allergies/Adverse Reactions: amoxicillin Allergy (Verified 12/22/17 16:26) Past Medical History - General Information source: Patient - Social History Smoking Status: Never Smoker Chew tobacco use (# tins/day): No Frequency of alcohol use: None Drug Abuse: None Occupation: None Family History: Arthritis, CAD, CVA, DM, Hyperlipidemia, Hypertension, Malignancy, Thyroid Disfunction Patient has suicidal ideation: No Patient has homicidal ideation: No - Past Medical History Cardiac Medical History: Reports: Hx Hypertension - During Renal/ Medical History: Denies: Hx Peritoneal Dialysis Surgical Hx: Negative - Immunizations Immunizations up to date: Yes Hx Diphtheria, Pertussis, Tetanus Vaccination: Yes Review of Systems - Review of Systems Constitutional: No symptoms reported. denies: Fever EENT: No symptoms reported Cardiovascular: No symptoms reported Respiratory: No symptoms reported. denies: Cough, Short of breath Gastrointestinal: Abdominal pain. denies: Nausea Genitourinary: No symptoms reported. denies: Burning, Dysuria, Flank pain Female Genitourinary: Vaginal discharge. denies: , Vaginal bleeding Musculoskeletal: No symptoms reported. denies: Back pain Skin: No symptoms reported Hematologic/Lymphatic: No symptoms reported Neurological/Psychological: No symptoms reported Physical Exam - Vital signs Vitals: Temp Pulse Resp BP Pulse Ox 98.4 F 89 18 131/82 H 100 12/22/17 17:09 12/22/17 17:09 12/22/17 17:09 12/22/17 17:09 12/22/17 17:09 - General General appearance: Appears well, Alert In distress: None - Respiratory Respiratory status: No respiratory distress Chest status: Nontender Breath sounds: Normal. No: Rales, Rhonchi, Stridor, Wheezing Chest palpation: Normal - Cardiovascular Rhythm: Regular Heart sounds: S1 appreciated, S2 appreciated Murmur: No - Abdominal Inspection: Normal Distension: No distension Bowel sounds: Normal Tenderness: Tender - Lower pelvic Organomegaly: No organomegaly - Genitourinary External exam: Normal Speculum exam: Cervix closed, Vaginal discharge Vaginal bleeding: None Bimanuel exam: Adnexal tenderness - Left. No: Cervical motion tender, Bladder/ Urethral tender, Adnexal mass - Back Back: Normal, Nontender. No: CVA tenderness - Extremities General upper extremity: Normal inspection, Nontender, Normal strength General lower extremity: Normal inspection, Nontender, Normal strength - Neurological Neuro grossly intact: Yes Cognition: Normal [place] Coma Scale Eye Opening: Spontaneous [place] Coma Scale Verbal: Oriented Fabricio Coma Scale Motor: Obeys Commands [place] Coma Scale Total: 15 - Psychological Associated symptoms: Normal affect, Normal mood - Skin Skin Temperature: Warm Skin Moisture: Dry Skin Color: Normal Course - Re-evaluation Re-evalutation: 12/22/17 18:53 Patient's abdomen soft, minimal tenderness to left lower pelvic area. Patient' s ultrasound demonstrating ovarian cyst. No concern for TOA. Patient presents with abdominal pain without signs of peritonitis or other life-threatening or serious etiology. Patient appears stable for discharge and has been instructed to return immediately if the symptoms worsen in any way, or in 8-12 hours if not improved for reevaluation. The patient has been instructed to return if the symptoms worsen or change in any way. - Vital Signs Vital signs: Temp Pulse Resp BP Pulse Ox 97.8 F 73 20 134/102 H 100 12/22/17 19:44 12/22/17 19:44 12/22/17 19:44 12/22/17 19:44 12/22/17 19:44 - Laboratory Laboratory results interpreted by me: 12/22/17 12/22/17 16:54 16:54 Urine Glucose (UA) 50 H Urine Urobilinogen 2.0 H Chlamydia DNA (PCR) DETECTED H Labs- Entire Visit 12/22/17 12/22/17 16:54 17:21 Urine Color YELLOW Urine Appearance CLEAR Urine pH 6.0 Ur Specific [place] 1.017 Urine Protein NEGATIVE Urine Glucose (UA) 50 H Urine Ketones NEGATIVE Urine Blood NEGATIVE Urine Nitrite NEGATIVE Urine Bilirubin NEGATIVE Urine Urobilinogen 2.0 H Ur Leukocyte Esterase NEGATIVE Urine WBC (Auto) 0 Urine RBC (Auto) 0 Squamous Epi Cells Auto 1 Urine Mucus (Auto) RARE Urine Ascorbic Acid NEGATIVE Urine HCG, Qual NEGATIVE Epi Cells (Wet Prep) 3+ EPITHELIALS SEEN Bacteria (Wet Prep) 3+ BACTERIA SEEN Trichomonas (Wet Prep) NO TRICHOMONAS SEEN Vaginal WBC FEW WBCS SEEN Vaginal Yeast NO YEAST SEEN - Diagnostic Test Radiology reviewed: Reports reviewed Discharge - Discharge Clinical Impression: Bacterial vaginosis, Vaginal discharge, Chlamydia Ovarian cyst Qualifiers: Laterality: left Qualified Code(s): N83.202 - Unspecified ovarian cyst, left side Condition: Stable Disposition: HOME, SELF-CARE Instructions: Chlamydia ([facility]), Metronidazole ([facility]), Ovarian Cyst ([facility]), Vaginosis, Bacterial ([facility]) Additional Instructions: Return immediately for any new or worsening symptoms Followup with your primary care provider, call tomorrow to make a followup appointment Prescriptions: Metronidazole [Flagyl 500 mg Tablet] 500 mg PO BID #14 tablet Naproxen [Naprosyn 250 Nmg Tablet] 1 tab PO BID #14 tablet Referrals: KOLBY HENNESSY MD [Primary Care Provider] - Follow up as needed [facility] [Provider Group] - Follow up as needed
[2017-12-22 17:34] LABS: APPEARANCE,URINE CLEAR; BILIRUBIN,URINE NEGATIVE (NEGATIVE); COLOR,URINE YELLOW; GLUCOSE, URINE 50 mg/dL (NEGATIVE); KETONES,URINE NEGATIVE (NEGATIVE); LEUKOCYTE ESTERASE,URINE NEGATIVE (NEGATIVE); NITRITE,URINE NEGATIVE (NEGATIVE); PROTEIN,URINE NEGATIVE (NEGATIVE); URINE SPECIFIC GRAVITY 1.017
[2017-12-22 17:37] LABS: BACTERIA (WET MOUNT) 3+ BACTERIA SEEN; EPITHELIALS (WET MOUNT) 3+ EPITHELIALS SEEN; T.VAGINALIS (WET MOUNT) NO TRICHOMONAS SEEN; WBCS (WET MOUNT) FEW WBCS SEEN; YEAST (WET MOUNT) NO YEAST SEEN
--- NOTE | 2017-12-22 18:42 | RADIOLOGY REPORT (SQ) ---
EXAM DESCRIPTION: U/S NON OB PEL TV W/DOPPLER COMPLETED DATE/TIME: 12/22/2017 6:17 pm REASON FOR STUDY: left adnexal pain COMPARISON: None. TECHNIQUE: Dynamic and static grayscale images acquired of the pelvis via transvaginal approach and recorded on PACS. Additional selected color Doppler and spectral images recorded. LIMITATIONS: None. FINDINGS: UTERUS: Contour normal. No mass. ENDOMETRIAL STRIPE: No focal or generalized thickening. No masses. CERVIX: No nabothian cysts. RIGHT OVARY AND DOPPLER: Right ovary was not visualized. LEFT OVARY AND DOPPLER: Normal size. Small cyst is identified measuring 2.6 x 2.0 x 2.5 cm in diamet ers. . Normal arterial vascular flow without evidence for torsion. FREE FLUID: Free fluid is identified in the posterior cul-de-sac OTHER: No other significant finding. MEASUREMENTS: UTERUS: 8.4 x 4.2 x 5.1 cm ENDOMETRIAL STRIPE: 17 mm RIGHT OVARY: Not visualized LEFT OVARY: 3.5 x 3.1 x 3.4 cm IMPRESSION: Small left ovarian cysts. Small amount of free fluid is identified in the posterior cul -de-sac. Other findings as noted above TECHNICAL DOCUMENTATION: JOB ID: [id number] [employer]- All Rights Reserved Rev-12/31 Reading location - IP/workstation name: [email or web address]
[2017-12-22] MEDS ORDERED: CEFTRIAXONE INJ 250 MG VIAL IM ONE (18:48)
[2017-12-22] MEDS ORDERED: AZITHROMYCIN 250 MG TABLET PO ONE (18:48)
[2017-12-22] MEDS ORDERED: LIDOCAINE 1% INJ-PF (10 MG/ML) 30 ML SDV INJ ONE (18:48)
[2017-12-22] MEDS ORDERED: METRONIDAZOLE 500 MG TABLET PO ONE (18:48)
[2017-12-22 18:57] LABS: CHLAM PCR DETECTED (NOT DETECT); GON PCR NOT DETECTED (NOT DETECT)
[2017-12-22 19:48] VITALS: BP 134/102
== END 2017-12-22 19:48 | disposition home or self-care (01) ==
LOC: ER 16:13
DX: N76.0 Acute vaginitis (principal); B96.89 Other specified bacterial agents as the cause of diseases classified elsewhere; N83.202 Unspecified ovarian cyst, left side; A74.9 Chlamydial infection, unspecified; R10.2 Pelvic and perineal pain; Z88.0 Allergy status to penicillin
CPT/HCPCS: 99284; 96372; 87210; 81025; 81001; 87491; 87591; 76830; 93976; J3490; J0696

== ENCOUNTER 2018-02-27 21:56 | Emergency (ER) | payer SELFPAY ==
[2018-02-28] MEDS ORDERED: AZITHROMYCIN 250 MG TABLET PO ONE (00:43)
--- NOTE | 2018-02-28 00:46 | ER Document Report ---
ED General - General Chief Complaint: Vaginal Discharge Stated Complaint: SORE THROAT,VAGINAL DISCHARGE,ABDOMINAL PAIN Time Seen by Provider: 02/27/18 23:05 Mode of Arrival: Ambulatory Information source: Patient Notes: Patient with complaint of sore throat x3 weeks. Patient reports history of strep, feels similar. Denies any fevers. Patient also complains of vaginal discharge last week which has resolved however patient reports that her partner has chlamydia. TRAVEL OUTSIDE OF THE [place] IN LAST 30 DAYS: No - Related Data Allergies/Adverse Reactions: amoxicillin Allergy (Verified 12/22/17 16:26) Past Medical History - General Information source: Patient - Social History Smoking Status: Never Smoker Frequency of alcohol use: None Drug Abuse: None Lives with: Family Family History: Arthritis, CAD, CVA, DM, Hyperlipidemia, Hypertension, Malignancy, Thyroid Disfunction - Past Medical History Cardiac Medical History: Reports: Hx Hypertension - During Renal/ Medical History: Denies: Hx Peritoneal Dialysis - Immunizations Immunizations up to date: Yes Hx Diphtheria, Pertussis, Tetanus Vaccination: Yes Review of Systems - Review of Systems Constitutional: No symptoms reported EENT: Throat pain Cardiovascular: No symptoms reported Respiratory: No symptoms reported Gastrointestinal: No symptoms reported Genitourinary: No symptoms reported Female Genitourinary: No symptoms reported Musculoskeletal: No symptoms reported Skin: No symptoms reported Hematologic/Lymphatic: No symptoms reported Neurological/Psychological: No symptoms reported Physical Exam - Vital signs Vitals: Temp Pulse Resp BP Pulse Ox 98.6 F 75 18 131/84 H 100 02/27/18 22:08 02/27/18 22:08 02/27/18 22:08 02/27/18 22:08 02/27/18 22:08 - Notes Notes: PHYSICAL EXAMINATION: GENERAL: Well-appearing, well-nourished and in no acute distress. HEAD: Atraumatic, normocephalic. EYES: Pupils equal round and reactive to light, extraocular movements intact, sclera anicteric, conjunctiva are normal. ENT: nares patent, oropharynx clear with small exudates. Moist mucous membranes. Uvula midline, no evidence of [employer]. NECK: Normal range of motion, supple without lymphadenopathy LUNGS: Breath sounds clear to auscultation bilaterally and equal. No wheezes rales or rhonchi. HEART: Regular rate and rhythm without murmurs ABDOMEN: Soft, nontender, normoactive bowel sounds. No guarding, no rebound. No masses appreciated. EXTREMITIES: Normal range of motion, no pitting or edema. No cyanosis. NEUROLOGICAL: No focal neurological deficits. Moves all extremities spontaneously and on command. PSYCH: Normal mood, normal affect. SKIN: Warm, Dry, normal turgor, no rashes or lesions noted. Course - Re-evaluation Re-evalutation: Rapid strep negative. Urinalysis ordered by triage nurse with no signs of infection. Discussed treatment options for chlamydia with patient as she reports that her partner had chlamydia last month but was treated. Patient reports that she had white vaginal discharge last week however this has resolved. She believes her partner was re-exposed. Patient declines vaginal exam as she currently has no symptoms, declines offer of sending a new urine specimen as the one she already gave cannot be tested for GC/chlamydia. Sent specimen to test for throat chlamydia, lab rejected specimen and patient declines to have new specimen sent. Will treat patient with 1000mg po zithromax x1 dose. Patient will follow up with the health department. - Vital Signs Vital signs: Temp Pulse Resp BP Pulse Ox 97.8 F 66 16 120/76 99 02/28/18 01:22 02/28/18 01:22 02/28/18 01:22 02/28/18 01:22 02/28/18 01:22 - Laboratory Laboratory results interpreted by me: 02/28/18 00:29 Urine Urobilinogen 4.0 H Ur Leukocyte Esterase TRACE H Discharge - Discharge Clinical Impression: Vaginal discharge, Exposure to chlamydia Condition: Stable Disposition: HOME, SELF-CARE Additional Instructions: Chlamydia Exposure You have been exposed to a chlamydia infection. Chlamydia is a germ that grows inside the cells of the mucous membranes. It often infects the eyes, urethra, and fallopian tubes. It can cause chronic pain and scar tissue if untreated. Antibiotics are used to treat chlamydia. It's important to take all the medicine even if there are no symptoms. Use condoms to prevent spread of the infection. Because this infection can spread by sexual contact, it's important that your sexual partner be checked before resuming sexual relations. A positive test for chlamydia has to be reported to the health department. Call the doctor or return at once if you develop increasing fever, rash, severe pelvic pain, vaginal bleeding (other than your period), or problems with your bladder or bowels. Sore Throat Sore throats may be caused by viruses, bacteria, or fungi. Most are due to a virus, and must get better on their own. Bacterial sore throats, particularly those due to "strep," need treatment with antibiotics. If an antibiotic is prescribed, be sure to take the medication for a full 10 days. Failure to take the antibiotic can result in complications such as rheumatic fever. Sometimes, an injection of antibiotics is given instead of pills or liquid. This single "shot" is equal in effectiveness to the oral medication. To relieve symptoms, take acetaminophen for pain. Sip clear liquids frequently, or eat popsicles or ice chips. Anesthetic sprays or lozenges may help. Make sure the air in the room is not too dry. Avoid using decongestants or antihistamines. Call the doctor if there is no improvement in two days, or if you have difficulty breathing, increasing throat pain, high fever, rash, or frequent vomiting. Please stop having sexual intercourse until you and your partner are both are cleared of the chlamydia infection. Please do not perform oral sex on anybody who has tested positive for chlamydia. Please follow-up with the health department, they will be happy to retest you. Referrals: [facility] [Outside] - Follow up as needed
[2018-02-28 00:56] LABS: APPEARANCE,URINE SLIGHTLY-CLOUDY; BILIRUBIN,URINE NEGATIVE (NEGATIVE); COLOR,URINE YELLOW; GLUCOSE, URINE NEGATIVE (NEGATIVE); KETONES,URINE NEGATIVE (NEGATIVE); LEUKOCYTE ESTERASE,URINE TRACE (NEGATIVE); NITRITE,URINE NEGATIVE (NEGATIVE); PROTEIN,URINE NEGATIVE (NEGATIVE); URINE SPECIFIC GRAVITY 1.026
[2018-02-28 01:31] VITALS: BP 120/76
== END 2018-02-28 01:32 | disposition home or self-care (01) ==
LOC: ER 21:56
DX: Z20.2 Contact with and (suspected) exposure to infections with a predominantly sexual mode of transmission (principal); N89.8 Other specified noninflammatory disorders of vagina; J02.9 Acute pharyngitis, unspecified; R10.9 Unspecified abdominal pain; I10 Essential (primary) hypertension
CPT/HCPCS: 81001; 87070; 87491; 87591; 87880; 99283

== ENCOUNTER 2018-04-12 10:41 | Emergency (ER) | payer SELFPAY ==
--- NOTE | 2018-04-12 11:06 | ER Document Report ---
ED Medical Screen (RME) - General Chief Complaint: Lower Abdominal Pain Stated Complaint: ABDOMINAL PAIN Time Seen by Provider: 04/12/18 11:00 Notes: RAPID MEDICAL EVALUATION DISCLOSURE I have seen this patient as part of a Rapid Medical Evaluation and, if applicable, placed any initially appropriate orders. The patient will be seen and fully evaluated, including a full history and physical exam, by a provider ( in Main ED or Fast Track) when a room becomes available. 22-year-old female here with complaints of bilateral lower abdominal pain yellow vaginal discharge and urinary frequency ongoing for the past 3-4 weeks. Pain is intermittent and not worse with anything in particular. The vaginal discharge is new and is not baseline for the patient. She has tried some Tylenol but no other medications. She has taken 2 home tests and states that "the first one was a false negative" and the second one "was a true negative". EXAM Mild suprapubic TTP Minimal right/left lower quadrant TTP No peritoneal signs TRAVEL OUTSIDE OF THE [place] IN LAST 30 DAYS: No - Related Data Allergies/Adverse Reactions: amoxicillin Allergy (Verified 04/12/18 10:42) Past Medical History - Social History Chew tobacco use (# tins/day): No Frequency of alcohol use: None Drug Abuse: None - Past Medical History Cardiac Medical History: Reports: Hx Hypertension - During Renal/ Medical History: Denies: Hx Peritoneal Dialysis - Immunizations Immunizations up to date: Yes Hx Diphtheria, Pertussis, Tetanus Vaccination: Yes Physical Exam - Vital signs Vitals: Temp Pulse Resp Pulse Ox 98.8 F 66 14 100 04/12/18 10:51 04/12/18 10:51 04/12/18 10:51 04/12/18 10:51 Course - Vital Signs Vital signs: Temp Pulse Resp BP Pulse Ox 98.8 F 66 14 100 04/12/18 10:51 04/12/18 10:51 04/12/18 10:51 04/12/18 10:51
--- NOTE | 2018-04-12 11:33 | ER Document Report ---
ED GI/ - General Chief Complaint: Lower Abdominal Pain Stated Complaint: ABDOMINAL PAIN Time Seen by Provider: 04/12/18 11:00 Mode of Arrival: Ambulatory Information source: Patient Notes: Patient presents complaining of lower pelvic pain off and on for the past 3-4 weeks. Patient does report some diarrhea but denies any nausea or vomiting. Patient does complain of some urinary frequency and vaginal discharge. Patient denies any fever. TRAVEL OUTSIDE OF THE [place] IN LAST 30 DAYS: No - HPI Patient complains to provider of: Diarrhea, Pelvic pain, Vaginal discharge. No : Vomiting Onset: Other - 3 weeks Timing/Duration: Waxing and waning Quality of pain: Achy Pain Level: 3 Location: Pelvis Vaginal bleeding (Compared to normal period): None Sexual history: Active Associated symptoms: Diarrhea, Nausea, Urinary frequency. denies: Fever, Loss of appetite, Odor, Urinary hesitancy, Vomiting Exacerbated by: Denies Relieved by: Denies Similar symptoms previously: No Recently seen / treated by doctor: No - Related Data Allergies/Adverse Reactions: amoxicillin Allergy (Verified 04/12/18 10:42) Past Medical History - General Information source: Patient Last Menstrual Period: 2 months ago - Social History Smoking Status: Never Smoker Chew tobacco use (# tins/day): No Frequency of alcohol use: None Drug Abuse: None Occupation: None Family History: Arthritis, CAD, CVA, DM, Hyperlipidemia, Hypertension, Malignancy, Thyroid Disfunction Patient has suicidal ideation: No Patient has homicidal ideation: No - Past Medical History Cardiac Medical History: Reports: Hx Hypertension - During Renal/ Medical History: Denies: Hx Peritoneal Dialysis Surgical Hx: Negative - Immunizations Immunizations up to date: Yes Hx Diphtheria, Pertussis, Tetanus Vaccination: Yes Review of Systems - Review of Systems Constitutional: No symptoms reported. denies: Fever, Recent illness EENT: No symptoms reported Cardiovascular: No symptoms reported Respiratory: No symptoms reported. denies: Cough Gastrointestinal: Abdominal pain, Diarrhea. denies: Nausea, Vomiting Genitourinary: Frequency. denies: Dysuria, Flank pain Female Genitourinary: Vaginal discharge. denies: Vaginal bleeding Musculoskeletal: No symptoms reported. denies: Back pain Skin: No symptoms reported Hematologic/Lymphatic: No symptoms reported Neurological/Psychological: No symptoms reported Physical Exam - Vital signs Vitals: Temp Pulse Resp BP Pulse Ox 98.8 F 66 14 141/85 H 100 04/12/18 10:50 04/12/18 10:50 04/12/18 10:50 04/12/18 10:50 04/12/18 10:50 - General General appearance: Appears well, Alert In distress: None - HEENT Head: Normocephalic, Atraumatic Eyes: Normal Nasal: Normal Mouth/Lips: Normal Neck: Normal, Supple. No: Lymphadenopathy - Respiratory Respiratory status: No respiratory distress Chest status: Nontender Breath sounds: Normal. No: Rales, Rhonchi, Stridor, Wheezing Chest palpation: Normal - Cardiovascular Rhythm: Regular Heart sounds: S1 appreciated, S2 appreciated Murmur: No - Abdominal Inspection: Normal Distension: No distension Bowel sounds: Normal Tenderness: Tender - lower pelvic - Genitourinary External exam: Normal Speculum exam: Cervix closed, Vaginal discharge Vaginal bleeding: None Bimanuel exam: Adnexal tenderness - left - Back Back: Normal, Nontender. No: CVA tenderness - Extremities General upper extremity: Normal inspection, Normal ROM General lower extremity: Normal inspection, Normal ROM - Neurological Neuro grossly intact: Yes Cognition: Normal Fabricio Coma Scale Eye Opening: Spontaneous Harrington Coma Scale Verbal: Oriented Fabricio Coma Scale Motor: Obeys Commands Fabricio Coma Scale Total: 15 - Psychological Associated symptoms: Normal affect, Normal mood - Skin Skin Temperature: Warm Skin Moisture: Dry Skin Color: Normal Course - Re-evaluation Re-evalutation: 04/12/18 14:57 Patient's abdomen soft, no guarding. Patient with mild tenderness to left lower pelvic area. No right lower quadrant tenderness. Patient nontoxic in appearance. Patient presents with abdominal pain without signs of peritonitis or other life-threatening or serious etiology. Patient appears stable for discharge and has been instructed to return immediately if the symptoms worsen in any way, or in 8-12 hours if not improved for reevaluation. The patient has been instructed to return if the symptoms worsen or change in any way. - Vital Signs Vital signs: Temp Pulse Resp BP Pulse Ox 98.5 F 75 16 144/77 H 100 04/12/18 14:59 04/12/18 14:59 04/12/18 14:59 04/12/18 14:59 04/12/18 14:59 - Laboratory Laboratory results interpreted by me: 04/12/18 11:40 Urine Protein 30 H Urine Glucose (UA) 50 H Urine Urobilinogen 2.0 H Ur Leukocyte Esterase TRACE H Labs- Entire Visit 04/12/18 04/12/18 04/12/18 11:30 11:30 11:40 Urine Color YELLOW Urine Appearance SLIGHTLY-CLOUDY Urine pH 6.0 Ur Specific Entiat 1.020 Urine Protein 30 H Urine Glucose (UA) 50 H Urine Ketones NEGATIVE Urine Blood NEGATIVE Urine Nitrite NEGATIVE Urine Bilirubin NEGATIVE Urine Urobilinogen 2.0 H Ur Leukocyte Esterase TRACE H Urine WBC (Auto) 8 Urine RBC (Auto) 1 Urine Bacteria (Auto) TRACE Squamous Epi Cells Auto 3 Urine Mucus (Auto) MOD Urine Ascorbic Acid NEGATIVE Urine HCG, Qual NEGATIVE Epi Cells (Wet Prep) 3+ EPITHELIALS SEEN Bacteria (Wet Prep) 3+ BACTERIA SEEN Trichomonas (Wet Prep) NO TRICHOMONAS SEEN Vaginal WBC FEW WBCS SEEN Vaginal Yeast NO YEAST SEEN Chlamydia DNA (PCR) NOT DETECTED N.gonorrhoeae DNA (PCR) NOT DETECTED - Diagnostic Test Radiology reviewed: Reports reviewed Discharge - Discharge Clinical Impression: Vaginal discharge, Bacterial vaginosis Condition: Stable Disposition: HOME, SELF-CARE Instructions: Metronidazole ([facility]), Pelvic Pain ([facility]), Vaginosis, Bacterial ([facility] ) Additional Instructions: Return immediately for any new or worsening symptoms Followup with your primary care provider, call tomorrow to make a followup appointment Prescriptions: Metronidazole [Flagyl 500 mg Tablet] 500 mg PO BID #14 tablet Naproxen [Naprosyn 250 Nmg Tablet] 1 tab PO BID #14 tablet Referrals: [facility] [Provider Group] - Follow up as needed
[2018-04-12 11:47] LABS: BACTERIA (WET MOUNT) 3+ BACTERIA SEEN; EPITHELIALS (WET MOUNT) 3+ EPITHELIALS SEEN; T.VAGINALIS (WET MOUNT) NO TRICHOMONAS SEEN; WBCS (WET MOUNT) FEW WBCS SEEN; YEAST (WET MOUNT) NO YEAST SEEN
[2018-04-12 12:19] LABS: APPEARANCE,URINE SLIGHTLY-CLOUDY; BILIRUBIN,URINE NEGATIVE (NEGATIVE); COLOR,URINE YELLOW; GLUCOSE, URINE 50 mg/dL (NEGATIVE); KETONES,URINE NEGATIVE (NEGATIVE); LEUKOCYTE ESTERASE,URINE TRACE (NEGATIVE); NITRITE,URINE NEGATIVE (NEGATIVE); PROTEIN,URINE 30 mg/dL (NEGATIVE)
[2018-04-12 13:16] LABS: CHLAM PCR NOT DETECTED (NOT DETECT); GON PCR NOT DETECTED (NOT DETECT)
--- NOTE | 2018-04-12 14:14 | RADIOLOGY REPORT (SQ) ---
EXAM DESCRIPTION: U/S NON OB PEL TV W/DOPPLER COMPLETED DATE/TIME: 04/12/2018 2:03 pm REASON FOR STUDY: pelvic pain COMPARISON: None. TECHNIQUE: Dynamic and static grayscale images acquired of the pelvis via transvaginal approach and recorded on PACS. Additional selected color Doppler and spectral images recorded. LIMITATIONS: None. FINDINGS: Last menses 02/18/2018. Urine test negative UTERUS: Contour normal. No mass. Uterus is 7 x 5 x 4 cm in size ENDOMETRIAL STRIPE: No focal or generalized thickening. No masses. Endometrium 11 mm in thickness. CERVIX: No nabothian cysts. RIGHT OVARY AND DOPPLER: Not visualized due to right adnexal bowel gas. LEFT OVARY AND DOPPLER: Normal size. No worrisome masses. Normal arterial vascular flow without evide nce for torsion. FREE FLUID: Physiologic cul-de-sac fluid OTHER: No other significant finding. IMPRESSION: Right ovary not visualized due to adnexal bowel gas. Otherwise unremarkable study. TECHNICAL DOCUMENTATION: JOB ID: [id number] [email or web address]- All Rights Reserved Reading location - IP/workstation name: [facility]
[2018-04-12 15:01] VITALS: BP 144/77
== END 2018-04-12 15:01 | disposition home or self-care (01) ==
LOC: ER 10:41
DX: N76.0 Acute vaginitis (principal); B96.89 Other specified bacterial agents as the cause of diseases classified elsewhere; R10.2 Pelvic and perineal pain; R19.7 Diarrhea, unspecified; R35.0 Frequency of micturition; Z88.0 Allergy status to penicillin
CPT/HCPCS: 76830; 81001; 81025; 87086; 87088; 87186; 87210; 87491; 87591; 93976; 99284

== ENCOUNTER 2018-07-13 20:38 | Emergency (ER) | payer SELFPAY ==
[2018-07-13] MEDS ORDERED: CEFTRIAXONE INJ 250 MG VIAL IM ONE (21:51)
[2018-07-13] MEDS ORDERED: LIDOCAINE 1% INJ-PF (10 MG/ML) 30 ML SDV INJ ONE (21:51)
[2018-07-13] MEDS ORDERED: AZITHROMYCIN 250 MG TABLET PO ONE (21:51)
[2018-07-13 22:02] LABS: BACTERIA (WET MOUNT) 4+ BACTERIA SEEN; EPITHELIALS (WET MOUNT) 4+ EPITHELIALS SEEN; RBCS (WET MOUNT) NO RBCS SEEN; T.VAGINALIS (WET MOUNT) NO TRICHOMONAS SEEN; WBCS (WET MOUNT) 4+ WBCS SEEN; YEAST (WET MOUNT) NO YEAST SEEN
[2018-07-13 22:17] LABS: APPEARANCE,URINE CLEAR; BILIRUBIN,URINE NEGATIVE (NEGATIVE); COLOR,URINE YELLOW; GLUCOSE, URINE NEGATIVE (NEGATIVE); KETONES,URINE NEGATIVE (NEGATIVE); LEUKOCYTE ESTERASE,URINE NEGATIVE (NEGATIVE); NITRITE,URINE NEGATIVE (NEGATIVE); PROTEIN,URINE NEGATIVE (NEGATIVE); URINE SPECIFIC GRAVITY 1.021; UROBILINOGEN,URINE NEGATIVE mg/dL (<2.0)
[2018-07-13] MEDS ORDERED: METRONIDAZOLE 500 MG TABLET PO ONE (22:52)
--- NOTE | 2018-07-13 22:55 | ER Document Report ---
ED GI/ - General Chief Complaint: Vaginal Discharge Stated Complaint: VAGINAL DISCHARGE/PAIN Time Seen by Provider: 07/13/18 21:15 Mode of Arrival: Ambulatory Information source: Patient Notes: 23-year-old female presented to ED for complaint of vaginal pain infection and discharge. She states she [facility] for possible yeast infection 2 weeks ago and they gave her 2 little pills that she had to take 3 days apart. She states the pain and discharge got worse so then she did Monistat and that just made the pain and discharge worse again. She states she was told she did not have anything but yeast infection. She states now the advised gentle discharge is a yellow-green color and it is more painful. She is alert and oriented respirations regular and unlabored speaking in full sentences walks with a even steady gait. TRAVEL OUTSIDE OF THE [place] IN LAST 30 DAYS: No - HPI Patient complains to provider of: Pelvic pain, Vaginal discharge Onset: Other - HPI Timing/Duration: Persistent Quality of pain: Achy, Sharp Severity at maximum: Moderate Severity in ED: Moderate Pain Level: 3 Location: Pelvis Associated symptoms: Odor, Vaginal discharge Exacerbated by: Denies Relieved by: Denies Similar symptoms previously: Yes Recently seen / treated by doctor: Yes - Related Data Allergies/Adverse Reactions: amoxicillin Allergy (Verified 04/12/18 10:42) Past Medical History - General Information source: Patient - Social History Smoking Status: Never Smoker Chew tobacco use (# tins/day): No Frequency of alcohol use: None Drug Abuse: None Lives with: Family Family History: Arthritis, CAD, CVA, DM, Hyperlipidemia, Hypertension, Malignancy, Thyroid Disfunction Patient has suicidal ideation: No Patient has homicidal ideation: No - Past Medical History Cardiac Medical History: Reports: Hx Hypertension - During Pulmonary Medical History: Reports: None EENT Medical History: Reports: None Neurological Medical History: Reports: None Endocrine Medical History: Reports: None Renal/ Medical History: Reports: None Malignancy Medical History: Reports: None GI Medical History: Reports: None Musculoskeletal Medical History: Reports None Skin Medical History: Reports None Psychiatric Medical History: Reports: None Traumatic Medical History: Reports: None Infectious Medical History: Reports: None Surgical Hx: Negative Past Surgical History: Reports: None - Immunizations Immunizations up to date: Yes Hx Diphtheria, Pertussis, Tetanus Vaccination: Yes Review of Systems - Review of Systems Notes: REVIEW OF SYSTEMS: CONSTITUTIONAL : Denies fever, chills, or sweats. Denies recent illness. EENT: Denies eye, ear, throat, or mouth pain or symptoms. Denies nasal or sinus congestion or discharge. Denies throat, tongue, or mouth swelling or difficulty swallowing. CARDIOVASCULAR: Denies chest pain. Denies palpitations or racing or irregular heart beat. Denies ankle edema. RESPIRATORY: Denies cough, cold, or chest congestion. Denies shortness of breath, difficulty breathing, or wheezing. GASTROINTESTINAL: Denies abdominal pain or distention. Denies nausea, vomiting , or diarrhea. Denies blood in vomitus, stools, or per rectum. Denies black, tarry stools. Denies constipation. GENITOURINARY: Denies difficulty urinating, painful urination, burning, frequency, blood in urine, or discharge. FEMALE GENITOURINARY: Complains of pelvic pain and vaginal discharge with odor for the last 2 weeks. States she was seen by a provider and told that she had yeast infection and treated with Diflucan and asgb-orv-focqduy medications and each time it just got worse. MUSCULOSKELETAL: Denies back or neck pain or stiffness. Denies joint pain or swelling. SKIN: Denies rash, lesions or sores. HEMATOLOGIC : Denies easy bruising or bleeding. LYMPHATIC: Denies swollen, enlarged glands. NEUROLOGICAL: Denies confusion or altered mental status. Denies passing out or loss of consciousness. Denies dizziness or lightheadedness. Denies headache. Denies weakness or paralysis or loss of use of either side. Denies problems with gait or speech. Denies sensory loss, numbness, or tingling. Denies seizures. PHYSICAL EXAMINATION: GENERAL: Well-appearing, well-nourished and in no acute distress. HEAD: Atraumatic, normocephalic. EYES: Pupils equal round and reactive to light, extraocular movements intact, conjunctiva are normal. ENT: Nares patent, oropharynx clear without exudates. Moist mucous membranes. NECK: Normal range of motion, supple without lymphadenopathy LUNGS: Breath sounds clear to auscultation bilaterally and equal. No wheezes rales or rhonchi. HEART: Regular rate and rhythm without murmurs ABDOMEN: Soft, nontender, nondistended abdomen. No guarding, no rebound. No masses appreciated. Female : Pelvic pain vaginal bleeding burning with urination Musculoskeletal: Normal range of motion, no pitting or edema. No cyanosis. NEUROLOGICAL: Cranial nerves grossly intact. Normal speech, normal gait. Normal sensory, motor exams PSYCH: Normal mood, normal affect. SKIN: Warm, Dry, normal turgor, no rashes or lesions noted. PSYCHIATRIC: Denies anxiety or stress. Denies depression, suicidal ideation, or homicidal ideation. ALL OTHER SYSTEMS REVIEWED AND NEGATIVE. Dictation was performed using [email or web address] ([email or web address]) voice recognition software Physical Exam - Vital signs Vitals: Temp Pulse Resp BP Pulse Ox 97.6 F 72 14 132/81 H 73 L 07/13/18 20:42 07/13/18 20:42 07/13/18 20:42 07/13/18 20:42 07/13/18 20:42 Course - Vital Signs Vital signs: Temp Pulse Resp BP Pulse Ox 98.0 F 67 18 130/83 H 100 07/13/18 22:59 07/13/18 22:59 07/13/18 22:59 07/13/18 22:59 07/13/18 22:59 Discharge - Discharge Clinical Impression: Bacterial vaginosis Vaginitis Qualifiers: Chronicity: subacute Qualified Code(s): N76.1 - Subacute and chronic vaginitis Condition: Stable Disposition: HOME, SELF-CARE Instructions: Family Physicians / Practices, [facility] [place] Additional Instructions: VAGINITIS: Your exam shows that you have vaginitis, a vaginal infection. The infection can be caused by a many different organisms, including trichomonas or Gardnerella. The usual symptoms are vaginal irritation and discharge. The treatment is usually antibiotics such as Flagyl. Laboratory tests can determine which germ is responsible. Use the medication as prescribed. Because this infection can be transmitted sexually, your sexual partner may need to be checked and treated also. If your physician has not discussed this with you, please check before resuming sexual relations. If a culture shows gonorrhea or chlamydia, the infection must be reported to the health department. Call the doctor if you develop pelvic pain, fever, or problems with urination, or if you don't improve as expected. VAGINOSIS, BACTERIAL: Your exam shows you have bacterial vaginosis. This condition is due to an overgrowth of bacteria in the vagina. Symptoms may include vaginal itching or pain, a smelly discharge, and sometimes burning with urination. Normally this is not transmitted by sexual contact. Vaginosis can be treated with oral or topical antibiotics. Metronidazole ( Flagyl) pills are usually effective. Topical vaginal creams include Cleocin and Metro-Gel. You should avoid sexual contact until your symptoms are all better. Call the doctor if you develop pelvic pain, fever, or problems with urination, or if you don't improve as expected. CEPHALOSPORINS: An antibiotic of the cephalosporin class has been prescribed. This type of antibiotic covers a wide variety of infections, including those of the skin, lungs, middle ear, and urinary tract. This antibiotic is somewhat similar to the penicillin family. In rare cases , a person who is allergic to penicillin will also be allergic to this medication. If you have had a severe allergic reaction to penicillin, and have not taken this antibiotic since that time, notify your doctor. Antibiotics which cover many germs ("broad spectrum" antibiotics) are more likely to cause diarrhea or "yeast" infections. Women prone to vaginal yeast problems may suffer an attack after taking this antibiotic. In infants, oral thrush (white spots "stuck" on the cheek) or yeast diaper rash may result. See your doctor if these problems occur. Call the doctor at once if you develop hives, itching, shortness of breath , or lightheadedness. AZITHROMYCIN: Azithromycin (Zithromax) is a broad spectrum antibiotic in the same class as erythromycin. It can treat a variety of bacterial infections, but is most frequently used for respiratory infections. Azithromycin is extremely long-lasting. It accumulates in body tissues and continues to kill bacteria for many days. In order to improve absorption, Azithromycin should be taken at least one hour before or two hours after a meal. It does not have the same strong tendency to upset the stomach as erythromycin and is usually very well tolerated. Patients who have had a rash or other true allergic reactions to erythromycin should not take this medication. Call if you develop gastrointestinal distress, severe diarrhea, rash, hives, itching, or shortness of breath. METRONIDAZOLE: Metronidazole (Flagyl) has been prescribed. This medication is used to kill a type of bacteria called anaerobes, and protozoan parasites such as trichomonas and Giardia. Flagyl often causes a metallic taste in the mouth and mild nausea. Do not use alcohol in any form with Flagyl (including alcohol in medication elixirs). Flagyl interacts with alcohol to cause flushing, palpitations, headache, stomach cramps, and vomiting. Do not use Flagyl if you are taking Antabuse (disulfiram). Call the doctor at once if you develop rash, shortness of breath, itching, or lightheadedness. Please call [phone] to ask for your results before 1:00 AM. The test usually takes about 2 hours to run. FOLLOW-UP CARE: If you have been referred to a physician for follow-up care, call the physician s office for an appointment as you were instructed or within the next two days. If you experience worsening or a significant change in your symptoms, notify the physician immediately or return to the Emergency Department at any time for re-evaluation. Prescriptions: Metronidazole [Flagyl 500 mg Tablet] 500 mg PO BID #14 tablet Forms: Elevated Blood Pressure, Return to Work
[2018-07-13 23:00] VITALS: BP 130/83
[2018-07-13 23:25] LABS: CHLAM PCR NOT DETECTED (NOT DETECT); GON PCR NOT DETECTED (NOT DETECT)
== END 2018-07-13 23:02 | disposition home or self-care (01) ==
LOC: ER 20:38
DX: N76.1 Subacute and chronic vaginitis (principal); B96.89 Other specified bacterial agents as the cause of diseases classified elsewhere; R10.2 Pelvic and perineal pain; N93.9 Abnormal uterine and vaginal bleeding, unspecified; Z88.0 Allergy status to penicillin
CPT/HCPCS: 99283; 96372; 87086; 87210; 81001; 87491; 87591; J3490; J0696

== ENCOUNTER 2018-07-30 10:23 | Emergency (ER) | payer SELFPAY ==
--- NOTE | 2018-07-30 11:05 | ER Document Report ---
HPI - HPI Patient complains to provider of: Vaginal discharge Time Seen by Provider: 07/30/18 10:47 Onset: Other - Several days Onset/Duration: Persistent Pain Level: 1 Context: Patient presents complaining of vaginal itching and discharge for the past several days. Patient reports that she had been previously treated for BV but did not take the antibiotics as prescribed, missed several days and then restarted the medications. Patient denies any new sexual partners. Associated Symptoms: Other - Vaginal discharge. denies: Fever, Nausea, Vomiting Exacerbated by: Denies Relieved by: Denies Similar symptoms previously: Yes Recently seen / treated by doctor: Yes - ROS ROS below otherwise negative: Yes Systems Reviewed and Negative: Yes All other systems reviewed and negative - CONSTITUTIONAL Constitutional: DENIES: Fever, Chills - GASTROINTESTINAL Gastrointestinal: DENIES: Nausea - URINARY Urinary: DENIES: Dysuria - REPRODUCTIVE Reproductive: REPORTS: Abnormal bleeding / discharge. DENIES: : - MUSCULOSKELETAL Musculoskeletal: DENIES: Back Pain - DERM Skin Color: Normal Skin Problems: None Past Medical History - General Information source: Patient - Social History Smoking Status: Never Smoker Chew tobacco use (# tins/day): No Frequency of alcohol use: None Drug Abuse: None Occupation: None Family History: Arthritis, CAD, CVA, DM, Hyperlipidemia, Hypertension, Malignancy, Thyroid Disfunction Patient has suicidal ideation: No Patient has homicidal ideation: No - Past Medical History Cardiac Medical History: Reports: Hx Hypertension - During Renal/ Medical History: Denies: Hx Peritoneal Dialysis Surgical Hx: Negative - Immunizations Immunizations up to date: Yes Hx Diphtheria, Pertussis, Tetanus Vaccination: Yes Vertical Provider Document - CONSTITUTIONAL Agree With Documented VS: Yes Exam Limitations: No Limitations General Appearance: WD/WN, No Apparent Distress - INFECTION CONTROL TRAVEL OUTSIDE OF THE [place] IN LAST 30 DAYS: No - HEENT HEENT: Atraumatic, Normocephalic - NECK Neck: Normal Inspection, Supple - RESPIRATORY Respiratory: No Respiratory Distress - CARDIOVASCULAR Cardiovascular: Regular Rate, Regular Rhythm - GI/ABDOMEN Gastrointestinal: Abdomen Soft - REPRODUCTIVE Female Genitalia: negative: CMT, Adnexal Pain-Right, Adnexal Pain-Left Last Menstrual Period: White vaginal discharge - BACK Back: Normal Inspection - MUSCULOSKELETAL/EXTREMETIES Musculoskeletal/Extremeties: MAEW - NEURO Level of Consciousness: Awake, Alert, Appropriate Motor/Sensory: No Motor Deficit - DERM Integumentary: Warm, Dry, No Rash Course - Re-evaluation Re-evalutation: 07/30/18 Presents with findings concerning for candidiasis. Will cover for BV as well given patient is concerned that she had a recurrence of BV symptoms, and she had only partially treated this with her leftover prescription. Good return precautions given. - Vital Signs Vital signs: Temp Pulse Resp BP Pulse Ox 98.6 F 64 16 130/83 H 100 07/30/18 10:24 07/30/18 10:24 07/30/18 10:24 07/30/18 10:24 07/30/18 10:24 - Laboratory Laboratory results interpreted by me: 07/30/18 15:46 Labs- Entire Visit 07/30/18 07/30/18 11:02 11:02 Epi Cells (Wet Prep) 3+ EPITHELIALS SEEN Trichomonas (Wet Prep) NO TRICHOMONAS SEEN Vaginal WBC FEW WBCS SEEN Vaginal RBC NO RBCS SEEN Vaginal Yeast BUDDING YEAST SEEN Chlamydia DNA (PCR) NOT DETECTED N.gonorrhoeae DNA (PCR) NOT DETECTED Discharge - Discharge Clinical Impression: Vaginal discharge, Vagina, candidiasis, Bacterial vaginosis Condition: Stable Disposition: HOME, SELF-CARE Instructions: Metronidazole ([facility]), Vaginal Yeast Infection ([facility]), Vaginosis, Bacterial ([facility]) Additional Instructions: Return immediately for any new or worsening symptoms Followup with your primary care provider, call tomorrow to make a followup appointment Prescriptions: Metronidazole [Flagyl 500 mg Tablet] 500 mg PO BID #14 tablet [facility] [NO LOCAL MD] - Follow up as needed
[2018-07-30 11:20] LABS: T.VAGINALIS (WET MOUNT) NO TRICHOMONAS SEEN; YEAST (WET MOUNT) BUDDING YEAST SEEN
[2018-07-30 11:21] LABS: EPITHELIALS (WET MOUNT) 3+ EPITHELIALS SEEN; RBCS (WET MOUNT) NO RBCS SEEN; WBCS (WET MOUNT) FEW WBCS SEEN
[2018-07-30] MEDS ORDERED: FLUCONAZOLE 100 MG TABLET PO ONE (11:23)
[2018-07-30] MEDS ORDERED: METRONIDAZOLE 500 MG TABLET PO ONE (11:23)
[2018-07-30 11:44] VITALS: BP 136/82
[2018-07-30 12:46] LABS: CHLAM PCR NOT DETECTED (NOT DETECT); GON PCR NOT DETECTED (NOT DETECT)
== END 2018-07-30 11:44 | disposition home or self-care (01) ==
LOC: ER 10:23
DX: N76.0 Acute vaginitis (principal); B96.89 Other specified bacterial agents as the cause of diseases classified elsewhere; B37.3 Candidiasis of vulva and vagina; I10 Essential (primary) hypertension
CPT/HCPCS: 87210; 87491; 87591; 99283

== ENCOUNTER 2018-10-25 18:37 | Emergency (ER) | payer SELFPAY ==
--- NOTE | 2018-10-25 20:10 | ER Document Report ---
ED Medical Screen (RME) - General Chief Complaint: Abdominal Pain Stated Complaint: ABDOMINAL PAIN,BACK PAIN Time Seen by Provider: 10/25/18 20:03 Mode of Arrival: Ambulatory Information source: Patient Notes: 23-year-old female presents with 2 weeks of lower abdominal cramping and clear vaginal discharge and foul odor. Patient is sexually active but uses condoms. Denies history of STDs. Does have a history of BV. Last menstrual period started on October 15, 2018. I have greeted and performed a rapid initial assessment of this patient. A comprehensive ED assessment and evaluation of the patient, analysis of test results and completion of medical decision making process we will be contacted by additional ED providers. PHYSICAL EXAMINATION: Vital signs reviewed-within normal limits GENERAL: Well-appearing, well-nourished and in no acute distress. LUNGS: No respiratory distress Musculoskeletal: Normal range of motion NEUROLOGICAL: Normal speech, normal gait. PSYCH: Normal mood, normal affect. SKIN: Warm, Dry, normal turgor, no rashes or lesions noted. TRAVEL OUTSIDE OF THE [place] IN LAST 30 DAYS: No - HPI Onset: Other Onset/Duration: Intermittent Quality of pain: Cramping Severity: Mild Associated Symptoms: denies: Dysuria, Fever, Nausea, Vaginal bleeding Exacerbated by: Denies Relieved by: Denies Similar symptoms previously: Yes Recently seen / treated by doctor: No - Related Data Smoking: Non-smoker Frequency of alcohol use: None Drug Abuse: None Allergies/Adverse Reactions: amoxicillin Allergy (Verified 07/30/18 10:51) Past Medical History - Past Medical History Cardiac Medical History: Reports: Hx Hypertension - During Renal/ Medical History: Denies: Hx Peritoneal Dialysis - Immunizations Immunizations up to date: Yes Hx Diphtheria, Pertussis, Tetanus Vaccination: Yes Physical Exam - Vital signs Vitals: Temp Pulse Resp BP Pulse Ox 99.5 F 65 16 143/87 H 100 10/25/18 18:47 10/25/18 18:47 10/25/18 18:47 10/25/18 18:47 10/25/18 18:47 Course - Vital Signs Vital signs: Temp Pulse Resp BP Pulse Ox 99.5 F 65 16 143/87 H 100 10/25/18 18:47 10/25/18 18:47 10/25/18 18:47 10/25/18 18:47 10/25/18 18:47
--- NOTE | 2018-10-25 20:28 | ER Document Report ---
ED General - General Chief Complaint: Abdominal Pain Stated Complaint: ABDOMINAL PAIN,BACK PAIN Time Seen by Provider: 10/25/18 20:03 Mode of Arrival: Ambulatory Notes: 23-year-old female patient emergency department chief complaint of cramping lower abdominal discomfort and vaginal discharge history of bacterial vaginosis and chlamydia. TRAVEL OUTSIDE OF THE [place] IN LAST 30 DAYS: No - HPI Onset/Duration: Gradual Quality of pain: Achy Severity: Mild Pain Level: 1 - Related Data Allergies/Adverse Reactions: amoxicillin Allergy (Verified 07/30/18 10:51) Past Medical History - General Information source: Patient - Social History Smoking Status: Never Smoker Frequency of alcohol use: None Drug Abuse: None Family History: Arthritis, CAD, CVA, DM, Hyperlipidemia, Hypertension, Malignancy, Thyroid Disfunction Patient has suicidal ideation: No Patient has homicidal ideation: No - Past Medical History Cardiac Medical History: Reports: Hx Hypertension - During Renal/ Medical History: Denies: Hx Peritoneal Dialysis - Immunizations Immunizations up to date: Yes Hx Diphtheria, Pertussis, Tetanus Vaccination: Yes Review of Systems - Review of Systems Notes: Constitutional: denies: Chills, Diaphoresis, Fever, Malaise, Weakness EENT: denies: Eye discharge, Blurred vision, Tearing, Double vision, Nose congestion, Nose discharge, Throat swelling, Mouth pain Cardiovascular: denies: Palpitations, Heart racing, Orthopnea, Dyspnea, Chest pain Respiratory: denies: Cough, Hurts to breathe, Wheezing, Shortness of breath Gastrointestinal: denies: Abdominal pain, Diarrhea, Nausea, Vomiting, Black stools, bright red blood in stool Genitourinary: denies: Burning, Dysuria, Frequency, Flank pain, Hematuria.+ d/d Musculoskeletal: denies: Joint pain, Joint swelling, Muscle pain, Muscle sti ffness, back pain Hematologic/Lymphatic: denies: Anemia, Easy bleeding, Easy bruising, Blood clots Neurological/Psychological: denies: Confusion, Dementia, Depression, Loss of consciousness Skin: No lesions, no masses, no skin breakdown, no abscesses Physical Exam - Vital signs Vitals: Temp Pulse Resp BP Pulse Ox 99.5 F 65 16 143/87 H 100 10/25/18 18:47 10/25/18 18:47 10/25/18 18:47 10/25/18 18:47 10/25/18 18:47 Interpretation: Normal - General General appearance: Appears well, Alert - HEENT Head: Normocephalic, Atraumatic Eyes: Normal Pupils: PERRL - Respiratory Respiratory status: No respiratory distress Chest status: Nontender Breath sounds: Normal Chest palpation: Normal - Cardiovascular Rhythm: Regular Heart sounds: Normal auscultation Murmur: No - Abdominal Inspection: Normal Distension: No distension Bowel sounds: Normal Tenderness: Nontender Organomegaly: No organomegaly - Back Back: Normal, Nontender - Extremities General upper extremity: Normal inspection, Nontender, Normal color, Normal ROM, Normal temperature General lower extremity: Normal inspection, Nontender, Normal color, Normal ROM, Normal temperature, Normal weight bearing. No: Myla's sign - Neurological Neuro grossly intact: Yes Cognition: Normal Orientation: AAOx4 [place] Coma Scale Eye Opening: Spontaneous Fabric[place] Coma Scale Verbal: Oriented [place] Coma Scale Motor: Obeys Commands Fabricio Coma Scale Total: 15 Speech: Normal Motor strength normal: LUE, RUE, LLE, RLE Sensory: Normal - Psychological Associated symptoms: Normal affect, Normal mood - Skin Skin Temperature: Warm Skin Moisture: Dry Skin Color: Normal Course - Re-evaluation Re-evalutation: 10/25/18 22:30 Laboratory 10/25/18 10/25/18 20:20 20:20 Urine Color YELLOW Urine Appearance SLIGHTLY-CLOUDY Urine pH 6.0 Ur Specific [place] 1.021 Urine Protein NEGATIVE Urine Glucose (UA) NEGATIVE Urine Ketones NEGATIVE Urine Blood SMALL H Urine Nitrite NEGATIVE Urine Bilirubin NEGATIVE Urine Urobilinogen NEGATIVE Ur Leukocyte Esterase LARGE H Urine WBC (Auto) 83 Urine RBC (Auto) 15 Squamous Epi Cells Auto 3 Urine Mucus (Auto) MANY Urine Ascorbic Acid NEGATIVE Urine HCG, Qual NEGATIVE Epi Cells (Wet Prep) 3+ EPITHELIALS SEEN Bacteria (Wet Prep) 3+ BACTERIA SEEN Trichomonas (Wet Prep) NO TRICHOMONAS SEEN Vaginal WBC FEW WBCS SEEN Vaginal Yeast NO YEAST SEEN Patient has quite a few WBCs and leukocytes in her urine so potentially could just be a UTI however based on her vaginal discharge we discussed treatment options. Patient is concerned she could have an STD so we will go ahead and treat her at this time for both the UTI, potential STD and bacterial vaginosis. Patient is comfortable with this plan. Will DC in stable condition. - Vital Signs Vital signs: Temp Pulse Resp BP Pulse Ox 99.5 F 65 16 143/87 H 100 10/25/18 18:47 10/25/18 18:47 10/25/18 18:47 10/25/18 18:47 10/25/18 18:47 - Laboratory Laboratory results interpreted by me: 10/25/18 20:20 Urine Blood SMALL H Ur Leukocyte Esterase LARGE H Discharge - Discharge Clinical Impression: Bacterial vaginosis Urinary tract infection Qualifiers: Urinary tract infection type: site unspecified Hematuria presence: without hematuria Qualified Code(s): N39.0 - Urinary tract infection, site not specified Condition: Good Disposition: HOME, SELF-CARE Instructions: Urinary Tract Infection ([facility]), Vaginosis, Bacterial ([facility]) Additional Instructions: If your symptoms are getting worse or no better than please return for repeat evaluation. Prescriptions: Metronidazole [Metrogel 0.75% Vaginal Gel] 1 applic PV QHS 3 Days #1 tube Ciprofloxacin HCl [Cipro 500 mg Tablet] 500 mg PO BID 3 Days #6 tablet
[2018-10-25 20:52] LABS: APPEARANCE,URINE SLIGHTLY-CLOUDY; BILIRUBIN,URINE NEGATIVE (NEGATIVE); COLOR,URINE YELLOW; GLUCOSE, URINE NEGATIVE (NEGATIVE); KETONES,URINE NEGATIVE (NEGATIVE); LEUKOCYTE ESTERASE,URINE LARGE (NEGATIVE); NITRITE,URINE NEGATIVE (NEGATIVE); PROTEIN,URINE NEGATIVE (NEGATIVE); URINE SPECIFIC GRAVITY 1.021; UROBILINOGEN,URINE NEGATIVE mg/dL (<2.0)
[2018-10-25 21:06] LABS: BACTERIA (WET MOUNT) 3+ BACTERIA SEEN; EPITHELIALS (WET MOUNT) 3+ EPITHELIALS SEEN; T.VAGINALIS (WET MOUNT) NO TRICHOMONAS SEEN; WBCS (WET MOUNT) FEW WBCS SEEN; YEAST (WET MOUNT) NO YEAST SEEN
[2018-10-25] MEDS ORDERED: AZITHROMYCIN 1 GM SUSP PACKET PO ONE (21:39)
[2018-10-25] MEDS ORDERED: CEFTRIAXONE INJ 250 MG VIAL IM ONE (21:39)
[2018-10-25] MEDS ORDERED: METRONIDAZOLE 500 MG TABLET PO ONE (21:40)
[2018-10-25 22:30] LABS: CHLAM PCR NOT DETECTED (NOT DETECT); GON PCR NOT DETECTED (NOT DETECT)
[2018-10-25 22:46] VITALS: BP 135/87
== END 2018-10-25 22:46 | disposition home or self-care (01) ==
LOC: ER 18:37
DX: N76.0 Acute vaginitis (principal); B96.89 Other specified bacterial agents as the cause of diseases classified elsewhere; N39.0 Urinary tract infection, site not specified; R10.9 Unspecified abdominal pain; M54.9 Dorsalgia, unspecified; R10.30 Lower abdominal pain, unspecified
CPT/HCPCS: 99284; 96372; 87210; 81025; 81001; 87491; 87591; Q0144; J0696

== ENCOUNTER 2019-01-22 07:20 | Emergency (ER) | payer SELFPAY ==
[2019-01-22] MEDS ORDERED: DIPHENHYDRAMINE HCL 25 MG CAPSULE PO ONE (08:59)
[2019-01-22] MEDS ORDERED: PREDNISONE 20 MG TABLET PO ONE (08:59)
[2019-01-22] MEDS ORDERED: FAMOTIDINE 20 MG TABLET PO ONE (08:59)
--- NOTE | 2019-01-22 08:59 | ER Document Report ---
ED Oral Problem - General Chief Complaint: Sore Throat Stated Complaint: LIP IRRITATION Time Seen by Provider: 01/22/19 08:39 Notes: Patient is a 23-year-old female who presents to the emergency department for swollen lips x1 day. Patient states she woke up yesterday morning with both her top and bottom lip swollen. Patient states it feels dry and irritated. Patient states she is attempted put on Chapstick but it it feels like a burning sensation. Patient denies any new recent blood loss, make-up, lipstick. Patient states she does not smoke. Patient says she has had a little bit of a sore throat. Denies fever. Patient denies any new medications or foods. Patient states she has been able to eat and drink appropriately without difficulty swallowing or throat irritation. Patient denies tongue swelling. TRAVEL OUTSIDE OF THE [place] IN LAST 30 DAYS: No - Related Data Allergies/Adverse Reactions: amoxicillin Allergy (Verified 01/22/19 07:26) Past Medical History - General Information source: Patient - Social History Smoking Status: Never Smoker Cigarette use (# per day): No Frequency of alcohol use: None Drug Abuse: None Lives with: Family Family History: Arthritis, CAD, CVA, DM, Hyperlipidemia, Hypertension, Malignancy, Thyroid Disfunction Patient has suicidal ideation: No Patient has homicidal ideation: No - Past Medical History Cardiac Medical History: Reports: Hx Hypertension - During Pulmonary Medical History: Reports: None EENT Medical History: Reports: None Neurological Medical History: Reports: None Endocrine Medical History: Reports: None Renal/ Medical History: Reports: None. Denies: Hx Peritoneal Dialysis Malignancy Medical History: Reports: None GI Medical History: Reports: None Musculoskeletal Medical History: Reports None Skin Medical History: Reports None Psychiatric Medical History: Reports: None Traumatic Medical History: Reports: None Infectious Medical History: Reports: None Surgical Hx: Negative - Immunizations Immunizations up to date: Yes Hx Diphtheria, Pertussis, Tetanus Vaccination: Yes Review of Systems - Review of Systems Constitutional: No symptoms reported EENT: See HPI Cardiovascular: No symptoms reported Respiratory: No symptoms reported Gastrointestinal: No symptoms reported Genitourinary: No symptoms reported Female Genitourinary: No symptoms reported Musculoskeletal: No symptoms reported Skin: No symptoms reported Hematologic/Lymphatic: No symptoms reported Neurological/Psychological: No symptoms reported Physical Exam - Vital signs Vitals: Temp Pulse Resp BP Pulse Ox 98.4 F 68 16 132/73 H 100 01/22/19 07:30 01/22/19 07:30 01/22/19 07:30 01/22/19 07:30 01/22/19 07:30 Interpretation: Normal - Notes Notes: GENERAL: Well-appearing, well-nourished and in no acute distress. HEAD: Atraumatic, normocephalic. EYES: Pupils equal round and reactive to light, extraocular movements intact, sclera anicteric, conjunctiva are normal. ENT: TMs normal, nares patent, oropharynx clear without exudates. Uvula is midline with no edema or swelling. Moist mucous membranes. Top and bottom lip swollen, irritated and red, appear cracked in appearance. Airway is patent. NECK: Normal range of motion, supple without lymphadenopathy or JVD. LUNGS: Breath sounds clear to auscultation bilaterally and equal. No wheezes rales or rhonchi. HEART: Regular rate and rhythm without murmurs, rubs or gallops. ABDOMEN: Soft, nontender, normoactive bowel sounds. No guarding, no rebound. No masses appreciated. BACK: No cervical, thoracic, lumbar midline tenderness. No saddle anesthesia, normal distal neurovascular exam. GENITOURINARY: Deferred. EXTREMITIES: Normal range of motion, no pitting or edema. No clubbing or cyanosis. NEUROLOGICAL: Cranial nerves II through XII grossly intact. Normal speech, normal gait. PSYCH: Normal mood, normal affect. SKIN: Warm, Dry, normal turgor, no rashes or lesions noted. Course - Re-evaluation Re-evalutation: 01/22/19 09:00 Initial evaluation of the patient reveals bilateral swollen cracked lips that appear irritated. She reports that her symptoms started yesterday. Patient denies any new medications, lip gloss, Chapstick or any other foods that may have contact with the area. Patient did states she tried to apply Chapstick to the area which seemed to irritate her lips more in which they became more red and burning. Symptoms are not consistent with angioedema, rather a possible contact dermatitis to her lips. 01/22/19 11:13 Patient resting comfortably on stretcher, states that she feels like the swelling in her lips has improved. Patient denies any difficulty swallowing or throat discomfort. Patient has been tolerating PO. Lip irritation and swelling have improved. The lips are less reddened. Will place patient on a steroid Dosepak as well as Pepcid. I did inform the patient of this and she verbalized understanding. Patient placed on strict return precautions to include shortness of breath, increased swelling to the lips or tongue, or any difficulty swallowing or facial edema. - Vital Signs Vital signs: Temp Pulse Resp BP Pulse Ox 98.7 F 62 16 118/79 97 01/22/19 11:34 01/22/19 11:34 01/22/19 07:30 01/22/19 11:34 01/22/19 11:34 Discharge - Discharge Clinical Impression: Swelling of both lips Condition: Stable Disposition: HOME, SELF-CARE Additional Instructions: Today you were seen in the emergency department for a possible allergic reaction or a contact allergic reaction to the lips. It is unsure what what is causing the swelling to your lips. I would avoid applying Chapstick, lip gloss, lipstick or anything to the area as they appear irritated and dry. We did medicate with Benadryl, steroids, and Pepcid for the reaction that has been ongo ing and constant for 1 day which did improve your symptoms. I will give you a dose of steroids to go home with as a prescription as well as Pepcid. You may take [id number] Benadryl. If the swelling to your lips get worse please return to the emergency department immediately. Also return to the emergency department if there is any difficulty swallowing, breathing, shortness of breath, drooling or any other concerning signs or symptoms. Possible Allergic Reaction Your symptoms are due to an allergic reaction. Allergy can cause hives, swelling of the hands, feet, and face, hoarseness, and difficulty swallowing or breathing. It may be due to exposure to medication, animal dander, foods, infection, or insect bites. Medication is a common cause, even when prior use of this same medication caused no problems. Acute treatment may include adrenalin and antihistamines. Usually, the specific allergic agent can't be identified unless repeated episodes occur. Home treatment includes the following: (1) Stop any suspicious medications. This will be discussed with you. (2) Oral antihistamines for the next four to five days. Example, diphenhydramine (Benadryl) every four hours. (3) You may also use cimetidine (Tagamet), ranitidine (Zantac), or famotidine (Pepcid) every four hours if diphenhydramine is not controlling itching and hives. (4) Avoid aspirin until the hives completely disappear. (5) Avoid hot bahs or showers until the hives are completely gone. Call the doctor if faintness, difficulty swallowing, tightness in the chest, or wheezing occurs. Prescriptions: Famotidine [Pepcid 20 mg Tablet] 20 mg PO DAILY 14 Days #14 tablet Prednisone [Deltasone 10 mg Tablet] 10 mg PO ASDIR PRN #21 tablet PRN Reason:
[2019-01-22 11:36] VITALS: BP 118/79
== END 2019-01-22 11:36 | disposition home or self-care (01) ==
LOC: ER 07:20
DX: R22.0 Localized swelling, mass and lump, head (principal); J02.9 Acute pharyngitis, unspecified; Z88.0 Allergy status to penicillin
CPT/HCPCS: 99283; 87070; 87880; 87077; J7512

== ENCOUNTER 2019-06-27 19:21 | Emergency (ER) | payer SELFPAY ==
[2019-06-27 20:13] LABS: APPEARANCE,URINE SLIGHTLY-CLOUDY; BILIRUBIN,URINE NEGATIVE (NEGATIVE); COLOR,URINE YELLOW; GLUCOSE, URINE NEGATIVE (NEGATIVE); KETONES,URINE NEGATIVE (NEGATIVE); PROTEIN,URINE NEGATIVE (NEGATIVE); URINE SPECIFIC GRAVITY 1.017; UROBILINOGEN,URINE NEGATIVE mg/dL (<2.0)
--- NOTE | 2019-06-27 20:26 | ER Document Report ---
ED Medical Screen (RME) - General Chief Complaint: Other Stated Complaint: POSSIBLE UTI Time Seen by Provider: 06/27/19 20:23 TRAVEL OUTSIDE OF THE [place] IN LAST 30 DAYS: No - HPI Notes: 06/27/19 20:24 24 year old female to the ED with C/O thick itchy vag discharge and urinary pain for one week. States that she is also seeing blood in her urine. She has been once and states she has one living child. States that there is possibility that she could be . denies any fevers or chills. admits to urinary frequency. I have performed a brief medical screening exam on the patient and determined that the patient requires further management from mainside provider. Have placed initial orders to aid in expediting patient's care. - Related Data Allergies/Adverse Reactions: amoxicillin Allergy (Verified 04/11/19 14:19) Past Medical History - Past Medical History Cardiac Medical History: Reports: Hx Hypertension - During Renal/ Medical History: Denies: Hx Peritoneal Dialysis - Immunizations Immunizations up to date: Yes Hx Diphtheria, Pertussis, Tetanus Vaccination: Yes Course - Laboratory Laboratory results interpreted by me: 06/27/19 19:49 Urine Blood SMALL H Urine Nitrite (Reflex) POSITIVE H Leukocyte Esterase Rfl TRACE H
--- NOTE | 2019-06-27 22:19 | ER Document Report ---
ED GI/ - General Chief Complaint: Urinary Problem Stated Complaint: POSSIBLE UTI Time Seen by Provider: 06/27/19 20:23 Notes: Patient is a 24-year-old female that comes to the emergency department for chief complaint of painful urination and vaginal itching and discomfort with discharge for the past week or so. She states she also could be . 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 She denies nausea/vomiting, fever/chills, abdominal pain, complaints at this time. She denies any daily medications or diagnosed medical history. TRAVEL OUTSIDE OF THE [place] IN LAST 30 DAYS: No - Related Data Allergies/Adverse Reactions: amoxicillin Allergy (Verified 06/27/19 20:27) Past Medical History - General Information source: Patient - Social History Smoking Status: Never Smoker Chew tobacco use (# tins/day): No Frequency of alcohol use: Occasional Drug Abuse: None Lives with: Alone Family History: Arthritis, CAD, CVA, DM, Hyperlipidemia, Hypertension, Malignancy, Thyroid Disfunction Patient has suicidal ideation: No Patient has homicidal ideation: No - Past Medical History Cardiac Medical History: Reports: Hx Hypertension - During Renal/ Medical History: Denies: Hx Peritoneal Dialysis Surgical Hx: Negative - Immunizations Immunizations up to date: Yes Hx Diphtheria, Pertussis, Tetanus Vaccination: Yes Review of Systems - Review of Systems Constitutional: No symptoms reported EENT: No symptoms reported Cardiovascular: No symptoms reported Respiratory: No symptoms reported Gastrointestinal: No symptoms reported Genitourinary: See HPI Female Genitourinary: See HPI Musculoskeletal: No symptoms reported Skin: No symptoms reported Hematologic/Lymphatic: No symptoms reported Neurological/Psychological: No symptoms reported Physical Exam - Vital signs Vitals: Temp Pulse Resp BP Pulse Ox 98.7 F 72 18 127/73 H 100 06/27/19 20:24 06/27/19 20:24 06/27/19 20:24 06/27/19 20:24 06/27/19 20:24 - Notes Notes: GENERAL: Alert, interacts well. No acute distress. HEAD: Normocephalic, atraumatic. EYES: Pupils equal, round, and reactive to light. Extraocular movements intact. ENT: Oral mucosa moist, tongue midline. Oropharynx unremarkable. Airway patent. NECK: Full range of motion. Supple. Trachea midline. LUNGS: Clear to auscultation bilaterally, no wheezes, rales, or rhonchi. No respiratory distress. HEART: Regular rate and rhythm. No murmur ABDOMEN: Soft, non-tender. Non-distended. GENITOURINARY: External exam with no concerning findings, speculum exam showing some tenderness, and some erythema of the cervix, some whitish vaginal discharge, no cervical motion tenderness. Radha PCT present during exam. EXTREMITIES: Moves all 4 extremities spontaneously. No edema, normal radial and dorsalis pedis pulses bilaterally. No cyanosis. BACK: no cervical, thoracic, lumbar midline tenderness. No saddle anesthesia, normal distal neurovascular exam. Moves all extremities in full range of motion. NEUROLOGICAL: Alert and oriented x3. Normal speech. Cranial nerves II through XII grossly intact. PSYCH: Normal affect, normal mood. SKIN: Warm, dry, normal turgor. No rashes or lesions noted. Course - Re-evaluation Re-evalutation: Urinalysis shows positive nitrites and some white blood cells. Culture is placed. With dysuria we will treat her. Physical examination does indicate pelvic infection. 3+ bacteria and 1+ white blood cells on wet note. Gonorrhea and chlamydia pending. Yeast and trichomonas are negative. Patient is not having any abdominal pain, her abdomen is soft and benign, vital signs unremarkable, patient well-appearing. Discussed options. Patient requests to be treated as much as possible by mouth now, she was given 2000 mg of Flagyl, 1000 mg of azithromycin, IM Rocephin. At home she will be on minimal amount of days for Keflex on request but still complete the treatment for cystitis at 3 days. Given Diflucan for afterwards. Discussed follow-up and return precautions. Patient states appreciation and agreement. Gonorrhea and Chlamydia negative. - Vital Signs Vital signs: Temp Pulse Resp BP Pulse Ox 98.7 F 72 18 127/73 H 100 06/27/19 20:24 06/27/19 20:24 06/27/19 20:24 06/27/19 20:24 06/27/19 20:24 - Laboratory Laboratory results interpreted by me: 06/27/19 19:49 Urine Blood SMALL H Urine Nitrite (Reflex) POSITIVE H Leukocyte Esterase Rfl TRACE H Discharge - Discharge Clinical Impression: Vaginal discharge, Dysuria Condition: Stable Disposition: HOME, SELF-CARE Additional Instructions: You are being treated for bacterial vaginosis, a pelvic infection, and a urinary tract infection. After you complete the Keflex, take the Diflucan to avoid yeast infection. Follow-up with primary care for additional management. Return to the emergency department for any concerning symptoms including fever, developing abdominal pain, vomiting, or any other concerning symptoms. Prescriptions: Fluconazole [Diflucan] 150 mg PO ONCE PRN #1 tablet PRN Reason: Cephalexin Monohydrate [Keflex 500 mg Capsule] 500 mg PO BID 3 Days #6 capsule
[2019-06-27 22:31] LABS: BACTERIA (WET MOUNT) 3+ BACTERIA SEEN; EPITHELIALS (WET MOUNT) 3+ EPITHELIALS SEEN; T.VAGINALIS (WET MOUNT) NO TRICHOMONAS SEEN; WBCS (WET MOUNT) 1+ WBCS SEEN; YEAST (WET MOUNT) NO YEAST SEEN
[2019-06-27] MEDS ORDERED: METRONIDAZOLE 500 MG TABLET PO ONE (23:00)
[2019-06-27] MEDS ORDERED: AZITHROMYCIN 250 MG TABLET PO ONE (23:00)
[2019-06-27] MEDS ORDERED: CEFTRIAXONE INJ 250 MG VIAL IM ONE (23:01)
[2019-06-27] MEDS ORDERED: ONDANSETRON 4 MG TAB.RAPDIS PO ONE (23:01)
[2019-06-27] MEDS ORDERED: LIDOCAINE 1% INJ-PF (10 MG/ML) 30 ML SDV INJ ONE (23:01)
[2019-06-27 23:51] VITALS: BP 132/76
[2019-06-28 00:02] LABS: CHLAM PCR NOT DETECTED (NOT DETECT)
== END 2019-06-27 23:40 | disposition home or self-care (01) ==
LOC: ER 19:21
DX: L29.2 Pruritus vulvae (principal); R30.0 Dysuria; N89.8 Other specified noninflammatory disorders of vagina; Z88.0 Allergy status to penicillin
CPT/HCPCS: 87086; 87210; 81025; 87088; 81001; 87491; 87591; S0119; J3490; J0696; 87186; 96372; 96374; 99283

== ENCOUNTER 2019-08-23 00:31 | Emergency (ER) | payer SELFPAY ==
[2019-08-23 01:44] LABS: APPEARANCE,URINE SLIGHTLY-CLOUDY; BILIRUBIN,URINE NEGATIVE (NEGATIVE); COLOR,URINE YELLOW; GLUCOSE, URINE 150 mg/dL (NEGATIVE); KETONES,URINE TRACE mg/dL (NEGATIVE); LEUKOCYTE ESTERASE,URINE SMALL (NEGATIVE); NITRITE,URINE NEGATIVE (NEGATIVE); PROTEIN,URINE NEGATIVE (NEGATIVE); URINE SPECIFIC GRAVITY 1.018; UROBILINOGEN,URINE NEGATIVE mg/dL (<2.0)
--- NOTE | 2019-08-23 01:59 | ER Document Report ---
ED GI/ - General Chief Complaint: Vaginal Discharge Stated Complaint: POSSBLE UTI Time Seen by Provider: 08/23/19 01:42 Primary Care Provider: BREA BERTRAND MD [Primary Care Provider] - Follow up as needed Mode of Arrival: Ambulatory Information source: Patient Notes: 24-year-old woman presents to the emergency department with a history of vaginal discharge and burning and itching. States that she had a urinary tract infection approximately 1 month ago however, and never got the prescription filled. She also notes a vaginal discharge with associated itching and burning. She denies fever, nausea vomiting, or other associated pelvic pain. TRAVEL OUTSIDE OF THE [place] IN LAST 30 DAYS: No - Related Data Allergies/Adverse Reactions: amoxicillin Allergy (Verified 06/27/19 20:27) Past Medical History - Social History Smoking Status: Never Smoker Frequency of alcohol use: None Drug Abuse: None Family History: Arthritis, CAD, CVA, DM, Hyperlipidemia, Hypertension, Malignancy, Thyroid Disfunction Patient has suicidal ideation: No Patient has homicidal ideation: No - Past Medical History Cardiac Medical History: Reports: Hx Hypertension - During Renal/ Medical History: Denies: Hx Peritoneal Dialysis - Immunizations Immunizations up to date: Yes Hx Diphtheria, Pertussis, Tetanus Vaccination: Yes Review of Systems - Review of Systems Notes: Constitutional: Negative for fever. HENT: Negative for sore throat. Eyes: Negative for visual changes. Cardiovascular: Negative for chest pain. Respiratory: Negative for shortness of breath. Gastrointestinal: Negative for abdominal pain, vomiting or diarrhea. Genitourinary: + Vaginal discharge, + dysuria Musculoskeletal: Negative for back pain. Skin: Negative for rash. Neurological: Negative for headaches, weakness or numbness. 10 point ROS negative except as marked above and in HPI. Physical Exam - Vital signs Vitals: Temp Pulse Resp BP Pulse Ox 97.7 F 70 16 145/89 H 100 08/23/19 00:43 08/23/19 00:43 08/23/19 00:43 08/23/19 00:43 08/23/19 00:43 - Notes Notes: PHYSICAL EXAMINATION: Physical Exam: General: Well-nourished well-developed woman in no acute distress HEENT: NC/AT, pupils equal round and reactive to light, MM moist,nares clear, Neck: supple, no adenopathy, no masses. Lungs: clear, no wheezing, no rales no rhonchi CVS: Regular rate and rhythm no murmur gallop or rub Abdomen: Soft active nontender, no masses, no hepatosplenomegaly Ext: No edema clubbing or cyanosis. Neuro: Alert and responsive, moving all 4 extremities on command, cranial nerves intact. Skin: Intact no open lesions, no rash PSYCH: Normal mood, normal affect. Course - Re-evaluation Re-evalutation: 08/23/19 01:59 A wet prep and a urine PCR GC/committee a test was performed. As I explained to the patient we can await the results of those testing as well as a urinalysis prior to the implementing a treatment plan. Findings are compatible with bacterial vaginosis and possible UTI. Given her dysuria we will treat with a 5- day course of medication. 08/23/19 03:06 I discussed the findings and plan with the patient, she was interested in getting a shot that might control her symptoms and I explained that bacterial vaginosis will require oral medication for at least 5 days. Patient acknowledges understanding of this plan and states that she will take the medication. - Vital Signs Vital signs: Temp Pulse Resp BP Pulse Ox 97.6 F 69 16 135/74 H 100 08/23/19 03:17 08/23/19 03:17 08/23/19 03:17 08/23/19 03:17 08/23/19 03:17 - Laboratory Laboratory results interpreted by me: 08/23/19 00:54 Urine Glucose (UA) 150 H Urine Ketones TRACE H Ur Leukocyte Esterase SMALL H 08/23/19 03:07 I have reviewed laboratory data and used this information for the treatment decisions regarding the patient. Discharge - Discharge Clinical Impression: Bacterial vaginosis, Urinary tract infection Condition: Good Disposition: HOME, SELF-CARE Instructions: Urinary Tract Infection, Child ([facility]), Vaginosis, Bacterial ([facility]) Prescriptions: Metronidazole [Flagyl 500 mg Tablet] 500 mg PO TID #21 tablet Nitrofurantoin/Nitrofuran Mac [Macrobid 100 mg Capsule] 1 tab PO BID #14 capsule Referrals: BREA BERTRAND MD [Primary Care Provider] - Follow up as needed
[2019-08-23 02:17] LABS: EPITHELIALS (WET MOUNT) 4+ EPITHELIALS SEEN; RBCS (WET MOUNT) NO RBCS SEEN; T.VAGINALIS (WET MOUNT) NO TRICHOMONAS SEEN; WBCS (WET MOUNT) FEW WBCS SEEN; YEAST (WET MOUNT) NO YEAST SEEN
[2019-08-23 03:18] VITALS: BP 135/74
[2019-08-23 03:41] LABS: CHLAM PCR NOT DETECTED (NOT DETECT)
== END 2019-08-23 03:20 | disposition home or self-care (01) ==
LOC: ER 00:31
DX: N76.0 Acute vaginitis (principal); B96.89 Other specified bacterial agents as the cause of diseases classified elsewhere; N39.0 Urinary tract infection, site not specified; R30.9 Painful micturition, unspecified; R30.0 Dysuria
CPT/HCPCS: 81001; 87210; 87491; 87591; 99283

== ENCOUNTER → 2019-10-31 | Outpatient (CLI) | payer SELFPAY ==
--- NOTE | 2019-10-31 15:47 | RADIOLOGY REPORT (SQ) ---
EXAM DESCRIPTION: U/S [id number] TRNABD 1GES W/ODOP COMPLETED DATE/TIME: 10/31/2019 3:14 pm REASON FOR STUDY: Z34.81 ENCOUNTER FOR SUPRVSN OF NORMAL , FIRST TRIMESTER Z34.81 ENCOUNTE R FOR SUPRVSN OF NORMAL , FIRST TRIM COMPARISON: None. TECHNIQUE: Transabdominal static and realtime grayscale images acquired of the pelvis. Additional se lected spectral and color Doppler images recorded. All images stored on PACs. bHCG: Not applicable. CLINICAL DATES: 8 week 1 day. LIMITATIONS: None. FINDINGS: FETUS: Single Living intrauterine . ULTRASOUND EGA: 8 week 0 day. ULTRASOUND ALFONZO: 06/11/2020. EFW: Not applicable less than 20 weeks. CRL: 1.63 cm. FHR: 165 beats per minute. SURVEY: No visualized anomalies. AMNIOTIC FLUID: Adequate amount. PLACENTA: Not yet developed due to early gestation. SUBCHORIONIC BLEED: Yes. SIZE OF BLEED: 0.8 x 1.0 x 2.1 cm. UTERUS: No masses. No anomalies. CERVICAL LENGTH: 2.7 cm. Closed. RIGHT ADNEXA: Normal ovary with normal vascular flow. No adnexal free fluid. No adnexal masses. LEFT ADNEXA: Normal ovary with normal vascular flow. No adnexal free fluid. Possible hemorrhagic cyst measuring 2.4 cm. FREE FLUID: None. OTHER: No other significant finding. IMPRESSION: LIVING INTRAUTERINE . EGA 8 WEEK 0 DAY. SUBCHORIONIC BLEED. Trimester of : First trimester - 0 to 13 weeks. TECHNICAL DOCUMENTATION: JOB ID: [id number] [employer]- All Rights Reserved rev Reading location - IP/workstation name: [employer]-[facility]-
== END ==
LOC: RAD 14:50
PROVIDERS: ATTEND Nurse Practitioner Family
DX: Z34.81 Encounter for supervision of other normal pregnancy, first trimester (principal)
CPT/HCPCS: 76801

== ENCOUNTER 2019-11-17 02:24 | Emergency (ER) | payer SELFPAY ==
[2019-11-17] MEDS ORDERED: MORPHINE SULFATE 10 MG/ML INJ IV ONE (03:16)
[2019-11-17] MEDS ORDERED: METOCLOPRAMIDE HCL INJ/PF 10 MG/2 ML SDV IV ONE (03:16)
[2019-11-17] MEDS ORDERED: NORMAL SALINE 1000 ML 1,000 ML IV ONE (03:16)
--- NOTE | 2019-11-17 03:19 | ER Document Report ---
ED GI/ - General Chief Complaint: OB Problem (<20wks) Stated Complaint: ABDOMINAL PAINS/11WKS PREG Time Seen by Provider: 11/17/19 03:08 Primary Care Provider: MICHAEL VALENZUELA ARNP [NO LOCAL MD] - Follow up as needed Notes: Patient is a 24-year-old female that comes emergency department for chief complaint of abdominal pain. She is G2, P1 at 11 weeks gestation by first trimester ultrasound, she states that during the morning she started having sharp pains and this severely worsened tonight. Patient states she does have both lower and upper abdominal pain although it is worst in the mid to upper abdomen. She denies trauma, nausea, vomiting, fever/chills, flank pain, dysuria, vaginal bleeding or discharge. She denies any surgeries. She takes doxylamine/B6 but takes no other daily medications, denies smoking, alcohol, recreational drugs, denies any other past medical history. TRAVEL OUTSIDE OF THE [place] IN LAST 30 DAYS: No - Related Data Allergies/Adverse Reactions: amoxicillin Allergy (Verified 06/27/19 20:27) Home Medications: floic acid. B6. vitamins Past Medical History - General Information source: Patient - Social History Smoking Status: Never Smoker Frequency of alcohol use: None Drug Abuse: None Lives with: Family Family History: Arthritis, CAD, CVA, DM, Hyperlipidemia, Hypertension, Malignancy, Thyroid Disfunction Patient has suicidal ideation: No Patient has homicidal ideation: No - Past Medical History Cardiac Medical History: Reports: Hx Hypertension - During Renal/ Medical History: Denies: Hx Peritoneal Dialysis Surgical Hx: Negative - Immunizations Immunizations up to date: Yes Hx Diphtheria, Pertussis, Tetanus Vaccination: Yes Review of Systems - Review of Systems Constitutional: No symptoms reported EENT: No symptoms reported Cardiovascular: No symptoms reported Respiratory: No symptoms reported Gastrointestinal: See HPI Genitourinary: See HPI Female Genitourinary: See HPI Musculoskeletal: No symptoms reported Skin: No symptoms reported Hematologic/Lymphatic: No symptoms reported Neurological/Psychological: No symptoms reported Physical Exam - Vital signs Vitals: Temp Pulse Resp BP Pulse Ox 98.5 F 84 20 144/94 H 97 11/17/19 02:32 11/17/19 02:32 11/17/19 02:32 11/17/19 02:32 04/03/20 02:32 - Notes Notes: GENERAL: Patient appears uncomfortable and restless HEAD: Normocephalic, atraumatic. EYES: Pupils equal, round, and reactive to light. Extraocular movements intact. ENT: Oral mucosa moist, tongue midline. Oropharynx unremarkable. Airway patent. NECK: Full range of motion. Supple. Trachea midline. No lymphadenopathy. LUNGS: Clear to auscultation bilaterally, no wheezes, rales, or rhonchi. No respiratory distress. Non-tender chest wall. HEART: Regular rate and rhythm. No murmur ABDOMEN: There is generalized tenderness of the abdomen in the mid to lower abdomen and also slightly in the upper abdomen. Nonspecific. No guarding. No rigidity. Bowel sounds present. GENITOURINARY: Deferred EXTREMITIES: Moves all 4 extremities spontaneously. No edema, normal radial and dorsalis pedis pulses bilaterally. No cyanosis. BACK: No overt CVA tenderness. No cervical, thoracic, lumbar midline tenderness. No saddle anesthesia, normal distal neurovascular exam. Moves all extremities in full range of motion. NEUROLOGICAL: Alert and oriented x3. Normal speech. Cranial nerves II through XII grossly intact. Strength 5/5 in all extremities. PSYCH: Restless SKIN: Warm, dry, normal turgor. No rashes or lesions noted. Course - Re-evaluation Re-evalutation: Initially patient appeared quite uncomfortable with generalized abdominal pain. However she is not vomiting, does not have a fever, is not tachycardic or h ypotensive. She is not bleeding. Initially she denied urinary symptoms although on repeat evaluation patient admits to painful urination and that she was planning on following up closely for this. CBC shows mild leukocytosis with elevation of neutrophils but no bandemia, chemistry nonspecific, hCG is elevated appropriately, RhoGam is not indicated. Transvaginal ultrasound showing living intrauterine with no acute abnormality. Abdominal and retroperitoneal ultrasound showing no acute findings, possible shadowing indicating kidney stones but no hydronephrosis or other findings suggesting ureterolithiasis with infection. Urine shows an infection with positive nitrates, greater than 182 white blood cells and red blood cells, bacteria, white blood cell clumps. There are some sq uamous epithelials but I do suspect this is the cause of the problem. Urine culture placed. Previous cultures show sensitivity to most everything except resistance to nitrofurantoin most recently. Patient was given Rocephin here, starting on Keflex. On reevaluation patient is much more comfortable, has no complaints. This along with her nonspecific abdominal exam initially leads me to have very low suspicion of acute abdomen. Discussed pelvic exam but this was deferred. Discussed work-up in detail, discussed treatment, expectations, follow-up, and return precautions. Patient states understanding and agreement. Asymptomatic and well-appearing at time of discharge. - Vital Signs Vital signs: Temp Pulse Resp BP Pulse Ox 98.5 F 84 20 144/94 H 97 11/17/19 02:32 11/17/19 02:32 11/17/19 02:32 11/17/19 02:32 11/17/19 02:32 - Laboratory Result Diagrams: 11/17/19 03:10 11/17/19 03:10 Laboratory results interpreted by me: 11/17/19 11/17/19 11/17/19 03:10 03:10 03:10 WBC 12.9 H Hgb 11.1 L Hct 32.8 L MCV 78 L MCH 26.4 L RDW 17.5 H Lymph % (Auto) 10.4 L Absolute Neuts (auto) 10.6 H Seg Neutrophils % 81.9 H Sodium 135.3 L Carbon Dioxide 21 L Beta HCG, Quant 32902.00 H Urine Protein 100 H Urine Ketones TRACE H Urine Blood LARGE H Urine Nitrite POSITIVE H Ur Leukocyte Esterase LARGE H Discharge - Discharge Clinical Impression: Abdominal pain Qualifiers: Abdominal location: generalized Qualified Code(s): R10.84 - Generalized abdo bigg pain Urinary tract infection Qualifiers: Urinary tract infection type: site unspecified Hematuria presence: without h ematuria Qualified Code(s): N39.0 - Urinary tract infection, site not specified Condition: Stable Disposition: HOME, SELF-CARE Additional Instructions: Your ultrasound shows no concerning findings with a living in the uterus. Your work-up indicates a kidney infection (pyelonephritis). You have been started on antibiotics, complete antibiotics as prescribed. Take Reglan and Benadryl if needed for symptoms along with Tylenol for pain. Symptoms should simply resolve. Follow-up with primary care. Return if you worsen including vomiting, spiking fever, worsening pain, or any other concerning symptoms. Prescriptions: Cephalexin Monohydrate [Keflex 500 mg Capsule] 500 mg PO BID 7 Days #14 capsule Metoclopramide HCl [Reglan] 5 mg PO ASDIR PRN #30 tablet PRN Reason: Referrals: MICHAEL VALENZUELA ARNP [NO LOCAL MD] - Follow up as needed
[2019-11-17 03:26] LABS: ABSOLUTE BASOPHILS # (AUTO) 0.1 10^3/uL (0.0-0.2); ABSOLUTE LYMPHOCYTES (AUTO) 1.3 10^3/uL (0.5-4.7); ABSOLUTE MONOCYTES (AUTO) 0.9 10^3/uL (0.1-1.4); ABSOLUTE NEUT (AUTO) 10.6 10^3/uL (1.7-8.2); BASOPHILS % (AUTO) 0.6 % (0-2); EOSINOPHILS % (AUTO) 0.2 % (0-6); HEMATOCRIT 32.8 % (36.0-47.0); HEMOGLOBIN 11.1 g/dL (12.0-15.5); LYMPHOCYTES % (AUTO) 10.4 % (13-45); MEAN CORPUSCULAR HEMOGLOBIN 26.4 pg (27.0-33.4); MEAN CORPUSCULAR HGB CONC 33.7 g/dL (32.0-36.0); MEAN CORPUSCULAR VOLUME 78 fl (80-97); MONOCYTES % (AUTO) 6.9 % (3-13); PLATELET COUNT 325 10^3/uL (150-450); RED BLOOD COUNT 4.19 10^6/uL (3.72-5.28); RED CELL DISTRIBUTION WIDTH 17.5 % (11.5-14.0); SEGMENTED NEUTROPHILS % (AUTO) 81.9 % (42-78); TOTAL CELLS COUNTED % (AUTO) 100 %; WHITE BLOOD COUNT 12.9 10^3/uL (4.0-10.5)
[2019-11-17 03:31] LABS: APPEARANCE,URINE CLOUDY; BILIRUBIN,URINE NEGATIVE (NEGATIVE); COLOR,URINE YELLOW; GLUCOSE, URINE NEGATIVE (NEGATIVE); KETONES,URINE TRACE mg/dL (NEGATIVE); LEUKOCYTE ESTERASE,URINE LARGE (NEGATIVE); NITRITE,URINE POSITIVE (NEGATIVE); PROTEIN,URINE 100 mg/dL (NEGATIVE); URINE SPECIFIC GRAVITY 1.018; UROBILINOGEN,URINE NEGATIVE mg/dL (<2.0)
[2019-11-17] MEDS ORDERED: CEFTRIAXONE 1 GM/D5W RTU 1 GM/50 ML RTUPB IV ONE (03:35)
[2019-11-17 03:42] LABS: ALBUMIN 4.2 g/dL (3.5-5.0); ALKALINE PHOSPHATASE 56 U/L (38-126); ANION GAP 9 (5-19); ASPARTATE AMINO TRANSFERASE 20 U/L (14-36); BILIRUBIN,TOTAL 0.2 mg/dL (0.2-1.3); BLOOD UREA NITROGEN 8 mg/dL (7-20); CALCIUM 9.6 mg/dL (8.4-10.2); CARBON DIOXIDE 21 mmol/L (22-30); CHLORIDE 105 mmol/L (98-107); GLUCOSE 97 mg/dL (75-110); POTASSIUM 4.1 mmol/L (3.6-5.0); TOTAL PROTEIN 7.5 g/dL (6.3-8.2)
--- NOTE | 2019-11-17 04:56 | RADIOLOGY REPORT (SQ) ---
CLINICAL HISTORY: very sharp abd pain COMPARISON: None. TECHNIQUE: US LESS THAN 14 WEEKS 11/17/2019 3:16 AM CDT FINDINGS: The uterus measures 9.9 cm. Intrauterine gestation is present with a pole measuring 3.7 cm corresponding to 10 weeks four days. heart rate is 173 bpm. The cervix measures 3.7 cm. Left ovary is unremarkable. Right ovary is not seen. IMPRESSION: Single live intrauterine gestation.
--- NOTE | 2019-11-17 04:59 | RADIOLOGY REPORT (SQ) ---
Ultrasound abdomen: 11/17/2019 3:57 AM CDT Technique: Multiple grayscale and color Doppler images of the abdomen were obtained. Comparison: None available History: 24-year old patient with abdominal pain. Findings: The visualized portions of the hepatic parenchyma appear normal. There is no evidence to suggest intra or extrahepatic ductal dilatation. There is normal direction of flow is seen in the main portal vein. There is no evidence of pericholecystic fluid, gallbladder wall thickening, or cholelithiasis. The common duct measures 2.0 mm. The right kidney measures up to 9.3 cm in length. The left kidney measures 10.4 cm in length. Bilateral echogenic areas are seen at both kidneys measuring up to 1.4 cm on the right and 3.1 cm on the left. These could represent nonobstructing calculi or artifact. Both kidneys demonstrate normal cortical echogenicity with no evidence to suggest hydronephrosis. The spleen measures up to 8.4 cm in length, and is normal in size. The visualized portions of the IVC, abdominal aorta, and pancreatic head appear normal. The visualized portions of the urinary bladder are unremarkable. No free intraperitoneal fluid is seen. Impression: No sonographic abnormality is seen within the abdomen. Bilateral echogenic areas are seen which may reflect nonobstructive calculi or artifact.
[2019-11-17 05:44] VITALS: BP 132/78
== END 2019-11-17 05:23 | disposition home or self-care (01) ==
LOC: ER 02:24
DX: O23.41 Unspecified infection of urinary tract in pregnancy, first trimester (principal); O26.91 Pregnancy related conditions, unspecified, first trimester; R10.84 Generalized abdominal pain; Z3A.11 11 weeks gestation of pregnancy; Z88.0 Allergy status to penicillin
CPT/HCPCS: 99284; 96375; 96365; 86900; 86901; 36415; 87086; 84702; 83690; 85025; 87088; 80053; 81001; 87186; 76801; 76700; J2765; J2270; J7030; J0696

== ENCOUNTER 2019-12-04 01:38 | Emergency (ER) | payer MEDICAID ==
--- NOTE | 2019-12-04 02:40 | ER Document Report ---
Entered by ANABELA SPIVEY SCRIBE 12/04/19 0228 Acting as scribe for:SIXTO LOZADA IV, MD ED GI/ - General Chief Complaint: Flank Pain Stated Complaint: BACK PAIN,LEFT FLANK PAIN Time Seen by Provider: 12/04/19 02:19 Mode of Arrival: Ambulatory Information source: Patient Notes: This 24 year old female patient, A0, currently x12 weeks gestation presents to the ED today with complaints of left-sided flank pain for the past x2 days. She also notes lower back pain and umbilical region abdominal pain. Patient was seen here on 11/17/2019 and was discharged with a diagnosis of pyelonephritis and prescription for Keflex. She states that her symptoms were getting better while she was taking the antibiotics, but her symptoms have returned after finishing the antibiotics. She reports that [facility] and was told that she had a yeast infection. She notes nausea, but denies vomiting, diarrhea, constipation, burning with urination, urinary frequency, vaginal bleeding, fever or chills. TRAVEL OUTSIDE OF THE [place] IN LAST 30 DAYS: No - Related Data Allergies/Adverse Reactions: amoxicillin Allergy (Verified 06/27/19 20:27) Past Medical History - General Information source: Patient - Social History Smoking Status: Never Smoker Cigarette use (# per day): No Chew tobacco use (# tins/day): No Smoking Education Provided: No Frequency of alcohol use: None Drug Abuse: None Lives with: Family Family History: Arthritis, CAD, CVA, DM, Hyperlipidemia, Hypertension, Malignancy, Thyroid Disfunction Patient has suicidal ideation: No Patient has homicidal ideation: No - Past Medical History Cardiac Medical History: Reports: Hx Hypertension - During - Immunizations Immunizations up to date: Yes Hx Diphtheria, Pertussis, Tetanus Vaccination: Yes Review of Systems - Review of Systems Constitutional: See HPI. denies: Chills, Fever EENT: No symptoms reported Cardiovascular: No symptoms reported Respiratory: No symptoms reported Gastrointestinal: See HPI, Abdominal pain, Nausea. denies: Vomiting, Constipation Genitourinary: See HPI. denies: Burning, Frequency Female Genitourinary: See HPI, - x12 weeks. denies: Vaginal bleeding Musculoskeletal: See HPI, Back pain Skin: No symptoms reported Hematologic/Lymphatic: No symptoms reported Neurological/Psychological: No symptoms reported -: Yes All other systems reviewed and negative Physical Exam - Vital signs Vitals: Temp Pulse Resp BP Pulse Ox 98.6 F 68 14 142/81 H 100 12/04/19 01:42 12/04/19 01:42 12/04/19 01:42 12/04/19 01:42 12/04/19 01:42 - General General appearance: Alert In distress: None - HEENT Head: Normocephalic, Atraumatic Eyes: Normal Pupils: PERRL - Respiratory Respiratory status: No respiratory distress Chest status: Nontender Breath sounds: Normal Chest palpation: Normal - Cardiovascular Rhythm: Regular Heart sounds: Normal auscultation Murmur: No Friction rub: No Gallop: None auscultated - Abdominal Inspection: Normal Distension: No distension Bowel sounds: Normal Tenderness: Nontender - Abdomen soft Organomegaly: No organomegaly - Genitourinary External exam: Normal Speculum exam: Vaginal discharge - Small amount of green/white discharge noted to back of vaginal wall Vaginal bleeding: None Notes: Female pharmacy operations coordinator present - Back Back: Normal, Nontender - Extremities General upper extremity: Normal inspection General lower extremity: Normal inspection - Neurological Neuro grossly intact: Yes - Psychological Associated symptoms: Normal affect, Normal mood - Skin Skin Temperature: Warm Skin Moisture: Dry Skin Color: Normal Course - Re-evaluation Re-evalutation: 12/04/19 04:46 Results of ED MSE discussed with patient. All questions were answered. Emergency signs and symptoms, reasons to return to the emergency department discussed with patient. - Vital Signs Vital signs: Temp Pulse Resp BP Pulse Ox 98.6 F 68 14 142/81 H 100 12/04/19 01:42 12/04/19 01:42 12/04/19 01:42 12/04/19 01:42 12/04/19 01:42 - Laboratory Result Diagrams: 12/04/19 02:50 12/04/19 02:50 Laboratory results interpreted by me: 12/04/19 12/04/19 12/04/19 02:02 02:50 02:50 RBC 3.58 L Hgb 9.7 L Hct 28.3 L MCV 79 L RDW 16.6 H Sodium 134.0 L Creatinine 0.48 L Urine Glucose (UA) 50 H Ur Leukocyte Esterase TRACE H Discharge - Discharge Clinical Impression: Bacterial vaginosis in UTI (urinary tract infection) Qualifiers: Urinary tract infection type: site unspecified Hematuria presence: without hematuria Qualified Code(s): N39.0 - Urinary tract infection, site not specified Condition: Good Disposition: HOME, SELF-CARE Instructions: Nitrofurantoin ([facility]) Additional Instructions: Return to the Emergency Department without delay if any worse. Follow-up with your FACULTY MEMBER within 1 day. HOME CARE INSTRUCTIONS & INFORMATION: Thank you for choosing us for your medical needs. We hope you're satisfied with the care you received. After you leave, you must properly care for your problem and, at the same time, observe its progress. Any condition can change. Some illnesses can change rapidly over hours or days. If your condition worsens, return to the Emergency Department or see your physician promptly. ABOUT YOUR X-RAYS AND EKG'S: If you had an EKG or X-rays taken, they have been read by the Emergency Physician. The X-rays and EKG's will also be read by a Radiologist or Examination Grader within 24 hours. If discrepancies are noted, you will be notified by telephone. Please be certain the ED has a correct telephone number & address where you can be reached. Also, realize that some fractures or abnormalities do not show up on initial X-rays. If your symptoms continue, see your physician. ABOUT YOUR LABORATORY TEST: If you had laboratory tests, the results have been reviewed by the Emergency Physician. Some test results (for example cultures) may not be available for several days. You will be contacted if any test result shows you need additional treatment. Please be certain the ED has a correct [facility] number and address where you can be reached. ABOUT YOUR MEDICATIONS: You will receive instructions on how to take your medicine on the prescription label you receive. Additional information may be provided by the Pharmacy. If you have questions afterwards, call the ED for clarification or further instructions. Some prescribed medications may cause drowsiness. Do not perform tasks such as driving a car or operating machinery without consulting your Pharmacist. If you feel you need a refill of pain medication, your condition will need re-evaluation. Please do not call for a refill of any medication. ABOUT YOUR SIGNATURE: Signature of this document acknowledges to followin. Understanding that you received emergency treatment and that you may be released before al medical problems are known or treated. Please be certain the ED has a correct phone number & address where you can be reached. 2. Acknowledgement that you will arrange for follow-up care as recommended. 3. Authorization for the Emergency Physician to provide information to your follow-up Physician in order to maximize your care. AT ANY TIME, IF YOUR SYMPTOMS CHANGE SIGNIFICANTLY OR WORSEN OR YOU DEVELOP NEW SYMPTOMS, RETURN TO THE EMERGENCY DEPARTMENT IMMEDIATELY FOR RE-EVALUATION. OUR GOAL IS TO PROVIDE EXCELLENT MEDICAL CARE! WE HOPE THAT WE HAVE MET YOUR EXPECTATIONS DURING YOUR EMERGENCY DEPARTMENT VISIT AND THAT YOU FEEL YOU HAVE RECEIVED EXCELLENT CARE! Vaginosis, Bacterial Your exam shows you have bacterial vaginosis. This condition is due to an overgrowth of bacteria in the vagina. Symptoms may include vaginal itching or pain, a smelly discharge, and sometimes burning with urination. Normally this is not transmitted by sexual contact. Vaginosis can be treated with oral or topical antibiotics. Metronidazole (Flagyl) pills are usually effective. Topical vaginal creams include Cleocin and Metro-Gel. You should avoid sexual contact until your symptoms are all better. Call the doctor if you develop pelvic pain, fever, or problems with urination, or if you don't improve as expected. Urinary Tract Infection Your evaluation indicates that you have a urinary tract infection. This is due to germs growing in the bladder. This is a common problem. This infection usually responds quickly to antibiotics. Your antibiotic should be taken exactly as prescribed. Drink plenty of fluids -- three to four quarts a day. Occasionally, a bladder anesthetic will be prescribed to help stop the feeling of urgency until the antibiotic has a chance to clear the infection. This may cause your urine to be dark orange. Certain urine infections require a culture. If the doctor obtained a culture, the results will be back in two days. You should call to see if a change in treatment is needed. A repeat urinalysis after you finish treatment is often recommended. The physician will let you know if further testing is required. Call the doctor if you develop fever, chills, flank pain, inability to urinate, or blood in the urine. Prescriptions: Metronidazole [Metrogel 0.75% Vaginal Gel] 1 applic PV QHS 5 Days #5 tube Nitrofurantoin Monohyd/M-Cryst [Macrobid 100 mg Capsule] 100 mg PO BID #14 cap I personally performed the services described in the documentation, reviewed and edited the documentation which was dictated to the scribe in my presence, and it accurately records my words and actions.
[2019-12-04 02:42] LABS: APPEARANCE,URINE CLEAR; BILIRUBIN,URINE NEGATIVE (NEGATIVE); COLOR,URINE YELLOW; GLUCOSE, URINE 50 mg/dL (NEGATIVE); KETONES,URINE NEGATIVE (NEGATIVE); LEUKOCYTE ESTERASE,URINE TRACE (NEGATIVE); NITRITE,URINE NEGATIVE (NEGATIVE); PROTEIN,URINE NEGATIVE (NEGATIVE); URINE SPECIFIC GRAVITY 1.021; UROBILINOGEN,URINE NEGATIVE mg/dL (<2.0)
[2019-12-04] MEDS: NORMAL SALINE 1000 ML 1,000 ML IV ONE ×2 (03:00→04:13)
[2019-12-04 03:05] LABS: ABSOLUTE BASOPHILS # (AUTO) 0.1 10^3/uL (0.0-0.2); ABSOLUTE EOSINOPHILS # (AUTO) 0.1 10^3/uL (0.0-0.6); ABSOLUTE LYMPHOCYTES (AUTO) 2.5 10^3/uL (0.5-4.7); ABSOLUTE MONOCYTES (AUTO) 0.5 10^3/uL (0.1-1.4); ABSOLUTE NEUT (AUTO) 3.3 10^3/uL (1.7-8.2); BASOPHILS % (AUTO) 1.1 % (0-2); EOSINOPHILS % (AUTO) 0.9 % (0-6); HEMATOCRIT 28.3 % (36.0-47.0); HEMOGLOBIN 9.7 g/dL (12.0-15.5); LYMPHOCYTES % (AUTO) 39.2 % (13-45); MEAN CORPUSCULAR HGB CONC 34.2 g/dL (32.0-36.0); MEAN CORPUSCULAR VOLUME 79 fl (80-97); MONOCYTES % (AUTO) 7.6 % (3-13); PLATELET COUNT 330 10^3/uL (150-450); RED BLOOD COUNT 3.58 10^6/uL (3.72-5.28); RED CELL DISTRIBUTION WIDTH 16.6 % (11.5-14.0); SEGMENTED NEUTROPHILS % (AUTO) 51.2 % (42-78); TOTAL CELLS COUNTED % (AUTO) 100 %; WHITE BLOOD COUNT 6.5 10^3/uL (4.0-10.5)
[2019-12-04 03:25] LABS: ALKALINE PHOSPHATASE 39 U/L (38-126); ANION GAP 8 (5-19); ASPARTATE AMINO TRANSFERASE 21 U/L (14-36); BILIRUBIN,TOTAL 0.3 mg/dL (0.2-1.3); BLOOD UREA NITROGEN 8 mg/dL (7-20); CALCIUM 9.6 mg/dL (8.4-10.2); CARBON DIOXIDE 22 mmol/L (22-30); CHLORIDE 104 mmol/L (98-107); GLUCOSE 83 mg/dL (75-110); POTASSIUM 4.1 mmol/L (3.6-5.0); TOTAL PROTEIN 7.4 g/dL (6.3-8.2)
[2019-12-04] MEDS ORDERED: NITROFURANTOIN MONOHYD/M-CRYST 100 MG CAPSULE PO ONE (03:49)
[2019-12-04 03:53] LABS: BACTERIA (WET MOUNT) 3+ BACTERIA SEEN; EPITHELIALS (WET MOUNT) 3+ EPITHELIALS SEEN; T.VAGINALIS (WET MOUNT) NO TRICHOMONAS SEEN; WBCS (WET MOUNT) NO WBCS SEEN; YEAST (WET MOUNT) NO YEAST SEEN
[2019-12-04 04:09] LABS: CHLAM PCR NOT DETECTED (NOT DETECT)
[2019-12-04 06:15] VITALS: BP 120/76
== END 2019-12-04 06:00 | disposition home or self-care (01) ==
LOC: ER 01:38
DX: O23.41 Unspecified infection of urinary tract in pregnancy, first trimester (principal); O23.591 Infection of other part of genital tract in pregnancy, first trimester; B96.89 Other specified bacterial agents as the cause of diseases classified elsewhere; O99.89 Other specified diseases and conditions complicating pregnancy, childbirth and the puerperium; M54.5 Low back pain; O26.891 Other specified pregnancy related conditions, first trimester; R10.9 Unspecified abdominal pain; R10.33 Periumbilical pain; R11.0 Nausea; Z3A.12 12 weeks gestation of pregnancy; Z88.0 Allergy status to penicillin
CPT/HCPCS: 99284; 36415; 87210; 83690; 85025; 80053; 81001; 87491; 87591; J3490; J7030; J8499

== ENCOUNTER 2020-09-03 23:49 | Emergency (ER) | payer MEDICAID ==
[2020-09-04] MEDS ORDERED: HYDROCODONE/ACETAMINOPHEN 5-325 MG TABLET PO ONE (01:44)
[2020-09-04] MEDS ORDERED: PROMETHAZINE HCL 25 MG TABLET PO ONE (01:44)
--- NOTE | 2020-09-04 01:46 | ER Document Report ---
ED Medical Screen (RME) - General Chief Complaint: Abdominal Pain Stated Complaint: LIGHTHEADED,DIZZY Time Seen by Provider: 09/04/20 01:44 Notes: 25-year-old female chief complaint of several days of pain mainly in the left lower abdomen radiating to the flank with nausea. Pain became much worse over the past day. Seen by SECOND SHIFT SUPERVISOR a couple of days ago, told by the bimanual exam she most likely had ovarian cyst, has been taking Tylenol and ibuprofen for pain but symptoms are worsened. Denies vomiting, fever, vaginal bleeding, abnormal vaginal discharge, dysuria, fever. Delivered a child 3 months ago. TRAVEL OUTSIDE OF THE [place] IN LAST 30 DAYS: No - Related Data Allergies/Adverse Reactions: amoxicillin Allergy (Verified 09/04/20 01:39) Past Medical History - Social History Frequency of alcohol use: None Drug Abuse: None - Past Medical History Cardiac Medical History: Reports: Hx Hypertension - During Renal/ Medical History: Denies: Hx Peritoneal Dialysis - Immunizations Immunizations up to date: Yes Hx Diphtheria, Pertussis, Tetanus Vaccination: Yes Physical Exam - Vital signs Vitals: Temp Pulse Resp BP Pulse Ox 99.2 F 78 18 138/89 H 100 09/04/20 00:01 09/04/20 00:01 09/04/20 00:01 09/04/20 00:01 09/04/20 00:01 - Abdominal Tenderness: Tender - There is some generalized lower abdominal tenderness, nonspecific, no guarding, exam limited by sitting position Course - Re-evaluation Re-evalutation: 09/04/20 01:45 I have greeted and performed a rapid initial assessment of this patient. A comprehensive ED assessment and evaluation of the patient, analysis of test results and completion of the medical decision making process will be conducted by additional ED providers. - Vital Signs Vital signs: Temp Pulse Resp BP Pulse Ox 99.2 F 78 18 138/89 H 100 09/04/20 00:01 09/04/20 00:01 09/04/20 00:01 09/04/20 00:01 09/04/20 00:01
--- NOTE | 2020-09-04 03:04 | RADIOLOGY REPORT (SQ) ---
EXAM: Ultrasound OB level one < than 14 weeks CLINICAL DATA: 25 years Female left pelvic pain, nausea, LMP: 07/23/2020, EGA: 6 weeks one day, ALFONZO: 04/29/2021 TECHNICAL DATA: Sonographic imaging of the pelvis was performed endovaginally on 09/04/2020 at 2:04 AM COMPARISONS: Date FINDINGS: The uterus is normal in size and configuration and measures: 9.4 x 5.8 x 7.7 cm. The cervix measures approximately 3.3 cm in length. There is a normal appearing intrauterine gestational sac. The average sac diameter measures 1.2 cm corresponding to a gestational age of 6 weeks 0 days. A yolk sac is present. There is no evidence of a pole at this time. There is a small crescentic area of decreased echogenicity adjacent to the gestational sac measuring 0.5 x 0.2 x 0.7 cm likely representing a small subchorionic bleed. There may be an additional small focal area of decreased echogenicity adjacent to the gestational sac to the left of midline measuring approximately 1.0 x 0.5 x 0.9 cm. This may represent a small subchorionic bleed as well. The right ovary is grossly normal in size, shape and echogenicity and measures: 3.5 x 3.2 x 3.1 cm. There is a dominant simple appearing cyst arising from the right ovary measuring 2.6 x 2.1 x 2.3 cm. There is normal pulsed and color Doppler flow to the right ovary. There are no right adnexal mass lesions.. The left ovary is grossly normal in size, shape and echogenicity and measures: 2.7 x 1.6 x 1.9 cm. There is normal pulsed and color Doppler flow to the left ovary. There are no left adnexal mass lesions.. There is no free fluid in the pelvis. IMPRESSION: 1. Intrauterine gestational sac corresponding to a gestational age of 6 weeks 0 days with an estimated due date of 04/30/2021. There is a yolk sac but no evidence of a pole at this time. This may represent a very early . A blighted ovum is not entirely excluded at this time. The ultrasound age corresponds to within 1 day of the expected clinical gestational age. 2. There appear to be 2 small crescentic areas of decreased echogenicity adjacent to the gestational sac which may represent very small subchorionic bleeds. 3. Grossly normal sonographic evaluation of the ovaries. There is a simple appearing cyst arising from the right ovary with a maximum dimension of 2.6 cm.
[2020-09-04 05:52] LABS: ABSOLUTE LYMPHOCYTES (AUTO) 2.7 10^3/uL (0.5-4.7); ABSOLUTE MONOCYTES (AUTO) 0.3 10^3/uL (0.1-1.4); ABSOLUTE NEUT (AUTO) 2.6 10^3/uL (1.7-8.2); BASOPHILS % (AUTO) 0.7 % (0-2); EOSINOPHILS % (AUTO) 0.5 % (0-6); HEMATOCRIT 32.2 % (36.0-47.0); HEMOGLOBIN 10.8 g/dL (12.0-15.5); LYMPHOCYTES % (AUTO) 47.8 % (13-45); MEAN CORPUSCULAR HEMOGLOBIN 25.3 pg (27.0-33.4); MEAN CORPUSCULAR HGB CONC 33.6 g/dL (32.0-36.0); MEAN CORPUSCULAR VOLUME 75 fl (80-97); MONOCYTES % (AUTO) 5.8 % (3-13); PLATELET COUNT 264 10^3/uL (150-450); RED BLOOD COUNT 4.27 10^6/uL (3.72-5.28); RED CELL DISTRIBUTION WIDTH 18.4 % (11.5-14.0); SEGMENTED NEUTROPHILS % (AUTO) 45.2 % (42-78); TOTAL CELLS COUNTED % (AUTO) 100 %; WHITE BLOOD COUNT 5.7 10^3/uL (4.0-10.5)
[2020-09-04 06:15] LABS: ALBUMIN 4.1 g/dL (3.5-5.0); ALKALINE PHOSPHATASE 62 U/L (38-126); ANION GAP 7 (5-19); ASPARTATE AMINO TRANSFERASE 18 U/L (14-36); BILIRUBIN,DIRECT 0.1 mg/dL (0.0-0.4); BILIRUBIN,TOTAL 0.3 mg/dL (0.2-1.3); BLOOD UREA NITROGEN 6 mg/dL (7-20); CALCIUM 9.6 mg/dL (8.4-10.2); CARBON DIOXIDE 24 mmol/L (22-30); CHLORIDE 106 mmol/L (98-107); GLUCOSE 87 mg/dL (75-110); TOTAL PROTEIN 7.4 g/dL (6.3-8.2)
[2020-09-04 06:33] LABS: ANISOCYTOSIS 2+; BURR CELLS SLIGHT; OVALOCYTES 1+; PLATELET COMMENT ADEQUATE; POIKILOCYTOSIS 1+; TEAR DROP CELLS SLIGHT
[2020-09-04 07:35] VITALS: BP 109/64
== END 2020-09-04 10:05 | disposition left against medical advice (07) ==
LOC: ER 23:49
DX: O26.91 Pregnancy related conditions, unspecified, first trimester (principal); R10.32 Left lower quadrant pain; R42 Dizziness and giddiness; R11.0 Nausea; Z3A.01 Less than 8 weeks gestation of pregnancy; Z88.0 Allergy status to penicillin
CPT/HCPCS: 99281; 86900; 86901; 36415; 84702; 85025; 80053; 76817; 93976; J3490